=== PATIENT | male | born 1965 | race Caucasian/White ===

== ENCOUNTER → 2017-05-30 08:30 | Outpatient (CLI) | payer BC, SELFPAY ==
[2017-05-30 09:36] LABS: ALB/GLOB Ratio 1.1 RATIO (0.9-2.4); AST(SGOT) 20 U/L (15-37); Alanine Aminotransfer ALT/SGPT 33 U/L (16-61); Albumin, Serum 3.7 g/dL (3.2-5.0); Alkaline Phosphatase 88 U/L (45-117); Anion Gap 8 (5-15); BUN 21 mg/dL (7-18); BUN/Creat Ratio 24.1 RATIO (10-20); Calcium,Total 8.7 mg/dL (8.5-10.1); Chloride 107 mmol/L (98-107); Cholesterol 197 mg/dL (200); Creatinine, Serum 0.87 mg/dL (0.70-1.30); EST Glomerular Filtration Rate 98 mL/min (>60); Est Glom Filt Rate - Afr Amer 119 mL/min (>60); Globulin 3.3 g/dL (2.2-4.2); Glucose 100 mg/dL (74-106); High Density Lipoprotein 45 mg/dL; PSA,Total - Annual Screen 0.58 ng/mL (0.00-4.00); Potassium 4.3 mmol/L (3.5-5.1); Sodium Level 141 mmol/L (136-145); Thyroid Stim Hormone (TSH) 2.35 uIU/mL (0.358-3.74); Triglycerides 125 mg/dL; Very Low Density Lipoprotein 25 mg/dL (5-40)
== END ==
PROVIDERS: Family Provider Family Medicine; PCP Family Medicine; Visit Provider Family Medicine
DX: R73.01 Impaired fasting glucose (principal); E03.9 Hypothyroidism, unspecified; Z80.42 Family history of malignant neoplasm of prostate
CPT/HCPCS: 36415; 80053; 80061; 84153; 84439; 84443; G0103

== ENCOUNTER → 2018-06-05 07:09 | Outpatient (CLI) | payer BC, SELFPAY ==
[2018-06-05 09:15] LABS: Anion Gap 8 (5-15); BUN 16 mg/dL (7-18); BUN/Creat Ratio 18.7 RATIO (10-20); Calcium,Total 8.8 mg/dL (8.5-10.1); Chloride 106 mmol/L (98-107); Cholesterol 237 mg/dL (200); Creatinine, Serum 0.85 mg/dL (0.70-1.30); EST Glomerular Filtration Rate 100 mL/min (>60); Est Glom Filt Rate - Afr Amer 121 mL/min (>60); Glucose 86 mg/dL (74-106); High Density Lipoprotein 52 mg/dL; PSA,Total - Annual Screen 0.84 ng/mL (0.00-4.00); Potassium 4.5 mmol/L (3.5-5.1); Sodium Level 141 mmol/L (136-145); Thyroid Stim Hormone (TSH) 1.96 uIU/mL (0.358-3.74); Triglycerides 156 mg/dL; Very Low Density Lipoprotein 31 mg/dL (5-40)
[2018-06-05 13:07] LABS: Vitamin D,25 Hydroxy 18.2 ng/mL (29.95-100.01)
== END ==
PROVIDERS: Family Provider Family Medicine; PCP Family Medicine; Referring Provider Family Medicine; Visit Provider Family Medicine
DX: Z00.00 Encounter for general adult medical examination without abnormal findings (principal); E55.9 Vitamin D deficiency, unspecified; E03.9 Hypothyroidism, unspecified; Z12.5 Encounter for screening for malignant neoplasm of prostate; I10 Essential (primary) hypertension
CPT/HCPCS: 36415; 80048; 80061; 82306; 84153; 84443; G0103

== ENCOUNTER → 2019-06-10 07:35 | Outpatient (CLI) | payer BC, SELFPAY ==
[2019-06-10 08:07] LABS: Hemoglobin 14.7 g/dL (13.0-16.5); Mean Corp Hgb Conc 32.7 g/dL (32-36); Mean Corpuscular Hgb 30.6 pg (27.0-32.0); Mean Corpuscular Volume 93.8 fL (80-94); Mean Platelet Vol. 9.1 fl (6.2-12.0); Platelet Count 214 K/mm3 (150-450); RBC Distribution Width CV 12.8 % (11.6-14.6); RBC Distribution Width SD 44.2 fl (35.1-43.9); White Blood Count 6.4 K/mm3 (4.4-11.0)
[2019-06-10 08:31] LABS: Microalbumin,Random Urine < 5.0 mg/L (NO RANGE EST.)
[2019-06-10 08:33] LABS: Vitamin D,25 Hydroxy 33.9 ng/mL
[2019-06-10 08:45] LABS: AST(SGOT) 31 U/L (15-37); Alanine Aminotransfer ALT/SGPT 50 U/L (16-61); Albumin, Serum 3.7 g/dL (3.2-5.0); Alkaline Phosphatase 103 U/L (45-117); Anion Gap 3 (5-15); BUN 21 mg/dL (7-18); BUN/Creat Ratio 26.2 RATIO (10-20); Calcium,Total 8.8 mg/dL (8.5-10.1); Chloride 109 mmol/L (98-107); Cholesterol 276 mg/dL (200); EST Glomerular Filtration Rate 107 mL/min (>60); Est Glom Filt Rate - Afr Amer 129 mL/min (>60); Globulin 3.6 g/dL (2.2-4.2); Glucose 115 mg/dL (74-106); High Density Lipoprotein 35 mg/dL; PSA,Total - Annual Screen 0.93 ng/mL (0.00-4.00); Potassium 4.6 mmol/L (3.5-5.1); Protein, Total 7.3 g/dL (6.4-8.2); Sodium Level 139 mmol/L (136-145); Thyroid Stim Hormone (TSH) 2.21 uIU/mL (0.358-3.74); Triglycerides 342 mg/dL; Very Low Density Lipoprotein 68 mg/dL (5-40)
== END ==
PROVIDERS: PCP Family Medicine; Referring Provider Family Medicine; Visit Provider Family Medicine
DX: E55.9 Vitamin D deficiency, unspecified (principal); I10 Essential (primary) hypertension; K21.9 Gastro-esophageal reflux disease without esophagitis; E03.9 Hypothyroidism, unspecified; E29.1 Testicular hypofunction; Z12.5 Encounter for screening for malignant neoplasm of prostate
CPT/HCPCS: 36415; 80053; 80061; 82043; 82306; 84153; 84403; 84443; 85027; G0103

== ENCOUNTER → 2019-10-21 07:40 | Outpatient (CLI) | payer BC, SELFPAY ==
[2019-10-21 08:33] LABS: Cholesterol 197 mg/dL (200); High Density Lipoprotein 36 mg/dL; Triglycerides 315 mg/dL; Very Low Density Lipoprotein 63 mg/dL (5-40)
== END ==
PROVIDERS: PCP Family Medicine; Referring Provider Family Medicine; Visit Provider Family Medicine
DX: E78.5 Hyperlipidemia, unspecified (principal)
CPT/HCPCS: 36415; 80061

== ENCOUNTER → 2020-06-09 07:02 | Outpatient (CLI) | payer BC, SELFPAY ==
[2020-06-09 08:33] LABS: ALB/GLOB Ratio 1.1 RATIO (0.9-2.4); AST(SGOT) 31 U/L (15-37); Alanine Aminotransfer ALT/SGPT 53 U/L (16-61); Albumin, Serum 3.8 g/dL (3.2-5.0); Alkaline Phosphatase 106 U/L (45-117); Anion Gap 7 (5-15); BUN 15 mg/dL (7-18); BUN/Creat Ratio 17.3 RATIO (10-20); Calcium,Total 8.5 mg/dL (8.5-10.1); Chloride 108 mmol/L (98-107); Cholesterol 181 mg/dL (200); Creatinine, Serum 0.87 mg/dL (0.70-1.30); EST Glomerular Filtration Rate 97 mL/min (>60); Est Glom Filt Rate - Afr Amer 118 mL/min (>60); Globulin 3.4 g/dL (2.2-4.2); Glucose 98 mg/dL (74-106); High Density Lipoprotein 42 mg/dL; Potassium 4.4 mmol/L (3.5-5.1); Protein, Total 7.2 g/dL (6.4-8.2); Sodium Level 140 mmol/L (136-145); T4 Free Direct 1.06 ng/dL (0.76-1.46); Triglycerides 191 mg/dL; Very Low Density Lipoprotein 38 mg/dL (5-40)
[2020-06-11 08:34] LABS: Vitamin D,25 Hydroxy 46.5 ng/mL
== END ==
PROVIDERS: PCP Family Medicine; Referring Provider Family Medicine; Visit Provider Family Medicine
DX: E55.9 Vitamin D deficiency, unspecified (principal); E78.5 Hyperlipidemia, unspecified; E03.9 Hypothyroidism, unspecified; Z12.5 Encounter for screening for malignant neoplasm of prostate
CPT/HCPCS: 36415; 80053; 80061; 82306; 84439; 84443

== ENCOUNTER 2020-06-20 23:30 | Observation (INO) | payer BC, SELFPAY ==
[2020-06-20 23:30] VITALS: BP 80/48
[2020-06-20 23:31] VITALS: BP 80/48; PULSE 59; RESP 15; TEMP 35.9; O2SAT 94; BMI 49.6
--- NOTE | 2020-06-20 23:34 | CT_ITS ---
STUDY: CT BRAIN WITHOUT CONTRAST REASON FOR EXAM: Male, 55 years old. fall, syncope RADIATION DOSAGE (If Supplied By Facility): CTDIvol = ( 44.99 ) mGy, DLP = ( 914.22 ) mGycm TECHNIQUE: Transaxial CT imaging of the brain was performed without administration of intravenous contrast material. Individualized dose optimization techniques were used for this CT. COMPARISON: No relevant priors. FINDINGS: Normal soft tissue structures. Normal calvarium. Normal size ventricles and extra-axial spaces for the patient''s age. Normal white matter tracts of the cerebral hemispheres. Normal basal ganglia and thalami. Normal brainstem. Normal cerebellum. There is no intracranial hemorrhage. There are no findings of an acute ischemic infarction. Normal visualized paranasal sinuses. CT/Brain/Head without Contrast IMPRESSION: Normal unenhanced CT scan of the brain. Electronically Signed: Romie Thomas DO at 0:24 EDT Tel , Service support ,
--- NOTE | 2020-06-20 23:34 | EKG12_ITS ---
Test Reason : SYNCOPE Blood Pressure : / mmHG Vent. Rate : 093 BPM Atrial Rate : 093 BPM P-R Int : 158 ms QRS Dur : 124 ms QT Int : 426 ms P-R-T Axes : 072 025 069 degrees QTc Int : 529 ms Sinus rhythm with occasional Premature ventricular complexes Non-specific intra-ventricular conduction delay Borderline ECG Confirmed by WILLIAM ALLISON, MORENA ([id number]), cuff cutter MICHAELA SMITH ([id number]) on 06/21/2020 12:48:59 PM Referred By: MIKA Confirmed By:MORENA THOMAS MD
[2020-06-20] MEDS: 0.9% Normal Saline 1,000 ML 1000 ML IV (23:39)
[2020-06-20 23:40] VITALS: BP 89/74
[2020-06-20 23:40] LABS: Absolute Lymphocyte Count 4.16 X10^3/uL (0.83-4.51); Absolute Neutrophil Count 3.6 X10^3/uL (2.0-7.7); Basophil# 0.04 X10^3/uL; Basophil% 0.5 % (0-1); Eosinophil# 0.13 X10^3/uL; Eosinophils% 1.6 % (0-5); Hematocrit 52.8 % (40-54); Hemoglobin 17.1 g/dL (13.0-16.5); Lymphocyte # 4.16 X10^3/ul (4.0); Lymphocyte % 50.8 % (19-41); Mean Corp Hgb Conc 32.4 g/dL (32-36); Mean Corpuscular Hgb 30.8 pg (27.0-32.0); Mean Corpuscular Volume 95.1 fL (80-94); Mean Platelet Vol. 9.2 fl (6.2-12.0); Monocyte# 0.19 X10^3/uL; Monocyte% 2.3 % (0-10); NRBC Flagged by Analyzer 0 % (0-5); Neutrophil # 3.58 X10^3/uL (2.7-7.7); Neutrophil % 43.7 % (47-70); Platelet Count 285 K/mm3 (150-450); RBC Distribution Width CV 12.6 % (11.6-14.6); RBC Distribution Width SD 44.4 fl (35.1-43.9); Red Blood Count 5.55 M/mm3 (4.6-6.2); White Blood Count 8.2 K/mm3 (4.4-11.0)
--- NOTE | 2020-06-20 23:40 | ED.DCSUM_ITS ---
- ER Visit Summary Date of Service: 06/20/20 Chief Complaint: Syncope History of Present Illness: The patient is a 55 M who presents with syncope. states that he was at home and was going to the bathroom when he had a syncopal episode. She states that his breathing and respirations were decreased so she called 911. Upon their arrival the patient was alert but slightly drowsy. He then had another syncopal episode in front of the EMS personnel. He was on the cardiac rehabilitation program director at that time they did not note any changes. He denies any chest pain, shortness of breath or abdominal pain. He has no history of this in the past. Has been eating and drinking normally recently. He is a smoker. He has no history of coronary disease or MO in the past Physical Examination: Vital signs reviewed. His current blood pressure is 80/40. HEENT exam unremarkable. Heart is tachycardic and regular rhythm without murmurs. Lungs are clear to auscultation. Abdomen is soft and nontender. Extremities reveal no edema. Skin exam normal. Neurologic exam reveals that he is slightly drowsy but answers all questions appropriately. His pupils are equal. His GCS is 14 because he keeps his eyes closed. He follows all commands and moves all 4 extremities. Test Results: EKG was sinus rhythm with a rate of 93. There are PVCs noted. There are other nonspecific ST-T wave changes noted. CAT scan of the head is unremarkable. Hemoglobin 17.1, potassium 3.1, anion gap 16, bicarb 18. BUN is 26 and creatinine is 1.25. Troponin is normal. D-dimer is 0.52, adjusted for age is normal. Lactate is 5.6. ABG shows 7.29/35/109/16 Emergency Department Course and Treatment: The patient was given 2 L of normal saline. Repeat blood pressure is now 100/70. He is still answering questions normally at this time. I am unclear the etiology of the lactic acidosis. The states that she did not see any seizure-like activity nor does he have a history of this. His D-dimer, adjusted for age, is normal. I do not feel he requires a CAT scan of the chest at this time. I performed a bedside ultrasound to review his aorta and this appears of normal caliber. There is no free fluid in the abdomen. At this point I feel he requires admission to the hospital. I reviewed his telemetry in the emergency department. There are continual PVCs and occasional PACs but no other arrhythmias noted. Patient was discussed with hospitalist for admission. Treatment Plan: [] Disposition: Admit Impression: Syncope, lactic acidosis This note was generated with [employer] dictation software. It may contain incorrect words, spelling, and punctuation that were not noted in review of the chart prior to signing ED Disposition - Plan for ED Patient: Referrals: Chuckie Fitzgerald MD [Primary Care Provider] -
[2020-06-20 23:53] VITALS: BP 83/65
[2020-06-20 23:55] LABS: D-Dimer Quantitative (DVT/PE) 0.52 FEU/ug/m (0.27-0.49)
[2020-06-20 23:55] LABS: Base Excess -10 mmol/L (-2 to +2); Bicarbonate 16.9 mmol/L (22-26); Blood Gas Specimen Type ART; O2 Delivery Device Cannula; PO2 109 mmHG (75-100); SITE R Radial; SO2 98 % (95-99); Total Carbon Dioxide 18 mmol/L; pCO2 35.3 mmHg (35-45); pH 7.29 (7.35-7.45)
[2020-06-20 23:59] LABS: ALB/GLOB Ratio 1.2 RATIO (0.9-2.4); AST(SGOT) 29 U/L (15-37); Alanine Aminotransfer ALT/SGPT 47 U/L (16-61); Albumin, Serum 3.8 g/dL (3.2-5.0); Alkaline Phosphatase 105 U/L (45-117); Anion Gap 16 (5-15); BUN 26 mg/dL (7-18); BUN/Creat Ratio 20.8 RATIO (10-20); Calcium,Total 8.9 mg/dL (8.5-10.1); Chloride 106 mmol/L (98-107); Creatinine, Serum 1.25 mg/dL (0.70-1.30); EST Glomerular Filtration Rate 64 mL/min (>60); Est Glom Filt Rate - Afr Amer 77 mL/min (>60); Estimated Creatinine Clearance 74.15 ml/min; Globulin 3.2 g/dL (2.2-4.2); Glucose 134 mg/dL (74-106); Potassium 3.1 mmol/L (3.5-5.1); Sodium Level 140 mmol/L (136-145)
[2020-06-21] VITALS (12 sets, daily range): BP systolic 98–155; BP diastolic 68–95; PULSE 83–99; RESP 12–18; TEMP 36.3–37.3; O2SAT 93–98; BMI 41.8; BMI 41.9
[2020-06-21 00:04] LABS: Lactic Acid 5.6 mmol/L (0.4-1.9)
[2020-06-21] MEDS: 0.9% Normal Saline 1,000 ML 999 ML IV (00:15)
[2020-06-21] MEDS: 0.9% Normal Saline 1,000 ML 150 ML IV (00:29)
--- NOTE | 2020-06-21 01:16 | PCM.HP.STD ---
Problem List (1) Syncope and collapse Status: Acute History of Present Illness Date of Admission: 06/21/20 Chief Complaint: SYNCOPE The patient is a 55 year old M with a significant history of hyperlipidemia; depression/anxiety and hyperlipidemia who presents emergency department with syncope. Reportedly her heard a thud and then found patient lying on the floor. Patient while on the floor was staring and was going in and out of consciousness. Paramedics were called. And while paramedics were bringing the patient to the hospital patient again had a syncopal episode. At the time of the episode his heart rate on the EMS monitor was 105 and stayed at 105 throughout. At the emergency department patient vomited. Also he complained of loose stools while at the emergency department. Blood alcohol level at emergency department was 76. Reportedly patient drinks about 2 shots of bourbon daily and he had same shots before his syncopal episode started. Patient's and denies patient drinking more than 2 shots of bourbon daily. Past Medical History Past Medical History (Chronic Problems): Chronic Problems History of chest pain (Chronic) Allergies No Known Allergies Allergy (Verified 06/20/20 23:34) Home Medications: Ambulatory Orders Medication Instructions Recorded Atorvastatin Calcium 20 mg PO DAILY 06/20/20 Citalopram [Celexa] 40 mg PO DAILY 06/20/20 Levothyroxine [Synthroid] 150 mcg PO DAILY 06/20/20 Surgical History: cholecystectomy Smoking Status: Former smoker - He reports quitting smoking a week and a half ago. Tobacco Use: Cigars - *Family History Maternal History Items: - - His mother from stomach perforation that developed into sepsis. Paternal History Items: Diabetes, Heart Disease Review of Systems Constitutional: Denies: Chills, Fever, Weight Change HEENT: Denies: Head Aches, Sinus Congestion, Sinus Drainage Cardiovascular: Reports: Syncope. Denies: Chest Pain, Palpitations Respiratory: Denies: Cough, Shortness of breath at rest, Sputum production Gastrointestinal: Reports: Nausea, Vomiting. Denies: Abdominal Pain Genitourinary: Denies: Dysuria Musculoskeletal: Denies: Joint Pain, Joint Tenderness Skin: Denies: Rash, Wounds Neurological: Denies: Numbness, Tingling, Focal weakness Psychiatric: Denies: Anxiety, Depression, Homicidal Ideations, Suicidal Ideations Hematologic/ Lymphatic: Denies: Easy Bruising, Easy Bleeding VTE Information - Inpt Only VTE Present on Admission: No VTE Mechan Device Prophylaxis: None VTE Pharm Prophylaxis ordered?: Yes Patient Problems: Active and Suspected Problems Syncope and collapse (Acute) - Physical Exam Vitals/I&O's: Vital Signs Temp Pulse Resp BP Pulse Ox 97.3 F L 88 18 102/68 93 06/21/20 00:58 06/21/20 00:58 06/21/20 00:58 06/21/20 00:58 06/21/20 00:58 Oxygen Flow Rate (L/min) 4 Oxygen Delivery Method Room Air Weight: 165.8 kg Body Mass Index (BMI) 49.6 Intake and Output for Last 24 Hours 06/19/20 06/20/20 06/21/20 23:59 23:59 23:59 Intake Total 1999 Balance 1999 General: Alert, Oriented x3, Cooperative, - - Patient was vomiting at the time of examination. HEENT: Atraumatic, PERRLA, EOMI, Normocephalic Neck: Supple, No JVD, Negative Carotid Bruits Lungs: Clear to auscultation, Normal air movement Cardiovascular: Regular rate, No murmurs Abdomen: Bowel Sounds Present, Soft, Non Tender Extremities: No edema, Capillary Refill Less than 3 Seconds Skin: No rashes, No breakdown Musculoskeletal: No Tenderness to Palpation of Joints or Extremities Neurological: Cranial nerves II-XII grossly intact Psych/Mental Status: Normal Affect, Appropriate Laboratory Results 06/20/20 23:30: Ethyl Alcohol 76.0 06/20/20 23:35: WBC 8.2, RBC 5.55, Hgb 17.1 H, Hct 52.8, MCV 95.1 H, MCH 30.8, MCHC 32.4, RDW Std Deviation 44.4 H, RDW Coeff of Mona 12.6, Plt Count 285, MPV 9.2, Immature Gran % (Auto) 1.100 H, Neut % (Auto) 43.7 L, Lymph % (Auto) 50.8 H, [place] % (Auto) 2.3, Eos % (Auto) 1.6, Baso % (Auto) 0.5, Absolute Neuts (auto) 3.6, Absolute Lymphs (auto) 4.16, Nucleated RBC % 0 06/20/20 23:35: D-Dimer Quant (PE/DVT) 0.52 H* 06/20/20 23:35: Sodium 140, Potassium 3.1 L, Chloride 106, Carbon Dioxide 18.0 L, Anion Gap 16 H, BUN 26 H, Creatinine 1.25, Estim Creat Clear Calc 74.15, Est GFR (MDRD) Af Amer 77, Est GFR (MDRD) Non-Af 64, BUN/Creatinine Ratio 20.8 H, Glucose 134 H, Calcium 8.9, Total Bilirubin 0.30, AST 29, ALT 47, Alkaline Phosphatase 105, Troponin I < 0.015, Total Protein 7.0, Albumin 3.8, Globulin 3.2, Albumin/Globulin Ratio 1.2 06/20/20 23:35: Lactic Acid 5.6 H* 06/20/20 23:52: Specimen Type ART, Sample Site R Radial, pH 7.29 L, Bicarbonate Actual 16.9 L, Total CO2 18, Base Excess -10 L, O2 Saturation 98, ABG pCO2 35.3, ABG pO2 109 H, O2 Delivery Device Cannula, Liter Flow 4.0, Clinical Comments handed to Dr Ward Current Medications Sodium Chloride () 1,000 mls @ 150 mls/hr IV .[id number] [facility] Last Admin: 06/21/20 00:29 Dose: 150 mls/hr Documented by: Assessment/Plan All Active Problems Syncope and collapse (Acute) The patient is a 55 year old M with a significant history of hyperlipidemia; depression/anxiety and hyperlipidemia who presents emergency department with syncope; nausea; vomiting diarrhea and hypokalemia. Syncope EKG sinus rhythm with IVCD and PVCs Etiology unclear. Check orthostatic vitals when patient's systolic blood pressure is more than 90. Echocardiogram ordered. Hypotension/dehydration Systolic blood pressure less than 90 and a BUN of more than 18. Old records reviewed showed normal baseline BUN. Received normal saline bolus and continuous infusion at emergency department. Will change IV fluids to normal saline with potassium because of concomitant hypokalemia. Trend blood pressures. Acute gastroenteritis Supportive treatment with IV fluids. Keep n.p.o. Stool studies including enteric pathogen panel; ova and parasites and stool lactoferrin. Abdomen and pelvis CT ordered at emergency department; follow results. Lactic acidosis Lactic acid of 5.6. Likely secondary to dehydration. IV fluids as above Trend lactic acid Hypokalemia Potassium of 3.1 on presentation. Likely secondary gastroenteritis. Normal saline with potassium ordered and potassium chloride IV ordered. Check magnesium. Trend CMP. Elevated D-dimer D-dimer of 0.58 but age appropriate. No further intervention at this time. Tobacco abuse Reportedly quit smoking 6 about 1-1/2 weeks ago. Counseled. DVT prophylaxis Subcutaneous Lovenox ordered. OBSV E&M: 42725 Initial observation care L3
--- NOTE | 2020-06-21 01:23 | ECHOD_ITS ---
Version 2 Reason For Study: SYNCOPE/NEAR SYNCOPE Procedure This was a 2D Doppler, Color Flow transthoracic echocardiogram. Exam performed portable in ICU/CCU. Left Ventricle Normal LV size. Mild concentric left ventricular hypertrophy. Left ventricular systolic function is normal. The estimated ejection fraction is 60 %. Stage 1 diastolic dysfunction. No regional wall motion abnormalities noted. Right Ventricle Normal RV size. Normal systolic function. Atria Normal left atrium. Normal right atrium. Mitral Valve Normal mitral valve. Tricuspid Valve Normal tricuspid valve. Aortic Valve Trisinus/trileaflet aortic valve. Mild focal aortic valve calcification. Pulmonic Valve The pulmonic valve is not well visualized. Great Vessels Mild to moderately dilated ascending aorta. Normal aortic root. The pulmonary artery is normal size. Normal inferior vena cava. Pericardium/Pleural No pericardial effusion. MMode/2D Measurements & Calculations LVIDd: 6.4 cm IVSd: 1.3 cm Ao root diam: 3.2 cm LVIDs: 4.5 cm LVPWd: 1.2 cm RVDd: 3.4 cm FS: 29.2 % LAV(MOD-bp): 67.5 ml EDV(MOD-sp4): 233.0 ml EDV(MOD-sp2): 116.0 ml LAV(MOD-bp) Indexed: 25.2 ml/m2 ESV(MOD-sp4): 84.3 ml EF(MOD-sp2): 57.7 % LAV(MOD-sp2): 65.4 ml EF(MOD-sp4): 63.8 % LAV(MOD-sp4): 65.6 ml SV(MOD-sp4): 148.7 ml SV(MOD-sp2): 66.9 ml LA A4 area: 21.7 cm2 LA dimension(2D): 5.0 cm RA A4 area: 14.2 cm2 Time Measurements MV dec time: 0.22 sec Doppler Measurements & Calculations MV E max luiz: 64.2 cm/sec Lat Peak E' Luiz: 9.4 cm/sec Med Peak E' Luiz: 7.1 cm/sec MV A max luiz: 72.9 cm/sec E/E' lat: 6.8 E/E' med: 9.0 MV E/A: 0.88 Ao V2 max: 157.9 cm/sec LV V1 max: 107.1 cm/sec PA V2 max: 120.3 cm/sec Ao max P.0 mmHg LV V1 max P.6 mmHg Ao V2 mean: 108.4 cm/sec LV V1 mean P.9 mmHg Ao mean P.4 mmHg LV V1 mean: 82.4 cm/sec Ao V2 VTI: 25.2 cm LV V1 VTI: 19.2 cm Interpretation Summary Normal LV size. Left ventricular systolic function is normal. The estimated ejection fraction is 60 %. Stage 1 diastolic dysfunction. Mild concentric left ventricular hypertrophy. Mild to moderately dilated ascending aorta. The study was technically difficult. Ordering Physician: Nima Gonsalves Referring Physician: Alejo Fitzgerald Performed By: Molly Henning RDCS, RVT
--- NOTE | 2020-06-21 01:27 | CT_ITS ---
STUDY: CT ABDOMEN AND PELVIS WITH CONTRAST REASON FOR EXAM: Male, 55 years old. abdominal pain RADIATION DOSAGE (If Supplied By Facility): CTDIvol = ( 22.07 ) mGy, DLP = ( 1456.80 ) mGycm TECHNIQUE: Transaxial images were obtained from the dome of the diaphragm to the symphysis pubis without oral contrast. IV 100mL [id number]-300 was administered. Sagittal and coronal images were reconstructed. Individualized dose optimization techniques were used for this CT. COMPARISON: None. FINDINGS: The visualized lung bases are unremarkable. The visualized portions of the heart are within normal limits. Normal liver. There is non-visualization of the gallbladder, which may be secondary to either contraction or a prior cholecystectomy. Normal spleen. Normal pancreas. Normal bilateral adrenal glands. Normal right kidney. Normal left kidney. Normal visualized stomach. Normal small intestine. Normal colon. There is non-visualization of the appendix. Normal abdominal aorta. Normal inferior vena cava. Normal retroperitoneum. Normal urinary bladder. Normal visualized prostate gland. Normal abdominal wall. Normal osseous structures. CT/Abdomen/Pelvis W IV Cont ONLY IMPRESSION: Normal enhanced CT of the abdomen and pelvis. Electronically Signed: Romie Thomas DO at 3:10 EDT Tel , Service support ,
[2020-06-21] MEDS: Ondansetron 4 MG/2 ML Vial IV (01:28)
[2020-06-21] MEDS: Potassium Chloride 10mEq/100mL 10 MEQ/100 ML IV.SOLN. 100 MEQ IV BOLUS ×4 (02:08→05:34)
[2020-06-21] MEDS: Potassium Chloride 40 MEQ in 0.9% Normal Saline 1,000 ML 125 MEQ IV (02:20)
[2020-06-21 03:39] LABS: Reflex Lactate? Y
[2020-06-21 04:35] LABS: Lactic Acid 1.2 mmol/L (0.4-1.9)
[2020-06-21 05:46] LABS: Absolute Lymphocyte Count 0.68 X10^3/uL (0.83-4.51); Basophil# 0.04 X10^3/uL; Basophil% 0.3 % (0-1); Eosinophil# 0.02 X10^3/uL; Eosinophils% 0.1 % (0-5); Hematocrit 44.9 % (40-54); Hemoglobin 14.8 g/dL (13.0-16.5); Lymphocyte # 0.68 X10^3/ul (4.0); Lymphocyte % 4.6 % (19-41); Mean Corpuscular Hgb 31.2 pg (27.0-32.0); Mean Corpuscular Volume 94.5 fL (80-94); Mean Platelet Vol. 9.4 fl (6.2-12.0); Monocyte# 0.95 X10^3/uL; Monocyte% 6.5 % (0-10); NRBC Flagged by Analyzer 0 % (0-5); Neutrophil # 12.95 X10^3/uL (2.7-7.7); Platelet Count 237 K/mm3 (150-450); RBC Distribution Width CV 12.7 % (11.6-14.6); Red Blood Count 4.75 M/mm3 (4.6-6.2); White Blood Count 14.7 K/mm3 (4.4-11.0)
[2020-06-21 06:11] LABS: Anion Gap 4 (5-15); BUN 24 mg/dL (7-18); BUN/Creat Ratio 28.6 RATIO (10-20); Calcium,Total 8.4 mg/dL (8.5-10.1); Chloride 108 mmol/L (98-107); Creatinine, Serum 0.84 mg/dL (0.70-1.30); EST Glomerular Filtration Rate 101 mL/min (>60); Est Glom Filt Rate - Afr Amer 122 mL/min (>60); Estimated Creatinine Clearance 123.43 ml/min; Glucose 125 mg/dL (74-106); Magnesium 1.9 mg/dL (1.6-2.6); Potassium 4.8 mmol/L (3.5-5.1); Sodium Level 138 mmol/L (136-145); Thyroid Stim Hormone (TSH) 1.55 uIU/mL (0.358-3.74)
--- NOTE | 2020-06-21 08:47 | RAD_ITS ---
STUDY: X-RAY CHEST REASON FOR EXAM: Male, 55 years old. Leukocytosis, lactic acidosis TECHNIQUE: Single AP portable view of the chest. COMPARISON: Comparison is made with prior study dated 11/06/2011. FINDINGS: EKG electrodes are seen. The lungs are clear and expanded. There is no demonstrated pleural abnormality. There is mild cardiac enlargement. Normal mediastinum and jose. Normal visualized pulmonary arteries. Normal visualized aortic arch and descending thoracic aorta. Normal visualized thoracic spine. Normal visualized ribs, clavicles, and shoulders. There is no demonstrated abnormality of the visualized soft tissue structures of the upper abdomen. RAD/Chest 1 View (Portable) IMPRESSION: Mild cardiomegaly. The lungs are clear. Electronically Signed: Alexis Nickerson MD at 14:49 EDT , Service support ,
--- NOTE | 2020-06-21 09:22 | PCM.PN.BLA ---
Progress Note This is a 55 years old male patient admitted because of reported syncopal episode. Patient mentioned that he took 2 shots of [place] around 1 hour before he went to bed. He went to bed around 10 PM last night. He was not aware of what happened between 10 PM and 1:30 AM when he found himself in the ED. He does not remember that he had any chest pain or shortness of breath. He did mention that he was dizzy. Today, he is feeling fine, no complaints. No chest pain or shortness of breath. CT scan brain showed no acute findings. CT scan abdomen and pelvis showed no acute pathology. On admission, his potassium was 3.1 which was replaced and corrected. Lactic acid was 5.6, came down to 1.2 with IV fluids. He has been afebrile. No evidence of infection. EKG revealed normal sinus rhythm with PVCs, no acute segment changes. Troponin was negative. LFT was unremarkable. TSH and magnesium were normal. Today, CBC revealed leukocytosis. Plan: Chest x-ray, urinalysis, transfer to PCU, repeat CBC and BMP tomorrow morning. STROKE Vital Signs/Narrative: Vital Signs Temp Pulse Resp BP Pulse Ox 06/21/20 08:00 99.1 F 98 16 148/88 H 98 06/21/20 07:47 90
[2020-06-21 09:46] LABS: Bacteria 0 SEEN /hpf (None Seen); Mucous, Urine 0 SEEN /hpf (<or=2+); Red Blood Cells-Urine 0 SEEN /hpf (0-5); Squamous Epithelial Cells - UA 0 SEEN /hpf (0-5)
[2020-06-21 09:49] LABS: Color, Urine Yellow (Yellow); Glucose, Dipstick Normal (Normal); Ketone-Dipstick 50 mg/dl (Negative); Leukocyte Esterase-Dipstick 25 /ul (Negative); Nitrite-Dipstick Negative (Negative); Occult Blood-Urine 10 /ul (Negative); Protein-Dipstick Negative (Negative); Specific Gravity, Urine 1.015 (1.002-1.030); Urine Bilirubin Dipstick Negative (Negative); Urine Clarity Clear (Clear); Urine Urobilinogen Normal (Normal)
[2020-06-21 09:56] LABS: White Blood Cells 0-5 SEEN /hpf (0-5)
[2020-06-21] MEDS: 0.9% Saline Lock 10 ML Syringe IV ×2 (10:11→19:58)
[2020-06-21] MEDS: Enoxaparin 40 MG/0.4 ML Syringe SC (10:11)
[2020-06-21 11:16] LABS: Hemoglobin A1c 5.2 % (3.8-5.6)
[2020-06-21] MEDS: Pantoprazole Sodium 40 MG Tablet PO (12:20)
[2020-06-21] MEDS: Citalopram 40 MG TABLET PO (12:20)
[2020-06-21] MEDS: Atorvastatin Calcium 20 MG Tablet PO (12:21)
[2020-06-21] MEDS: Levothyroxine 125 MCG Tablet PO (12:21)
[2020-06-21] MEDS: Acetaminophen 325 MG Tablet 650 MG PO ×2 (13:46→19:58)
[2020-06-21] MEDS: MELATONIN 3 MG TABLET PO (21:54)
[2020-06-21] MEDS: Ibuprofen 400 MG Tablet PO (21:54)
[2020-06-22 02:59] VITALS: PULSE 73
[2020-06-22 04:57] LABS: Absolute Lymphocyte Count 1.88 X10^3/uL (0.83-4.51); Absolute Neutrophil Count 4.6 X10^3/uL (2.0-7.7); Basophil# 0.03 X10^3/uL; Basophil% 0.4 % (0-1); Eosinophil# 0.35 X10^3/uL; Eosinophils% 4.5 % (0-5); Hematocrit 40.1 % (40-54); Lymphocyte # 1.88 X10^3/ul (4.0); Lymphocyte % 24.2 % (19-41); Mean Corp Hgb Conc 32.4 g/dL (32-36); Mean Corpuscular Hgb 30.7 pg (27.0-32.0); Mean Corpuscular Volume 94.8 fL (80-94); Mean Platelet Vol. 9.5 fl (6.2-12.0); Monocyte# 0.83 X10^3/uL; Monocyte% 10.7 % (0-10); NRBC Flagged by Analyzer 0 % (0-5); Neutrophil # 4.64 X10^3/uL (2.7-7.7); Neutrophil % 59.8 % (47-70); Platelet Count 196 K/mm3 (150-450); RBC Distribution Width SD 44.8 fl (35.1-43.9); Red Blood Count 4.23 M/mm3 (4.6-6.2); White Blood Count 7.8 K/mm3 (4.4-11.0)
[2020-06-22 05:11] LABS: Anion Gap 5 (5-15); BUN 13 mg/dL (7-18); BUN/Creat Ratio 19.7 RATIO (10-20); Calcium,Total 8.4 mg/dL (8.5-10.1); Chloride 107 mmol/L (98-107); Creatinine, Serum 0.66 mg/dL (0.70-1.30); EST Glomerular Filtration Rate 134 mL/min (>60); Est Glom Filt Rate - Afr Amer 162 mL/min (>60); Estimated Creatinine Clearance 157.09 ml/min; Glucose 90 mg/dL (74-106); Potassium 3.5 mmol/L (3.5-5.1); Sodium Level 141 mmol/L (136-145)
[2020-06-22 06:06] VITALS: BP 134/72; PULSE 74; RESP 18; TEMP 36.7; O2SAT 95
[2020-06-22] MEDS: Levothyroxine 125 MCG Tablet PO (06:12)
[2020-06-22] MEDS: Ibuprofen 400 MG Tablet PO (06:15)
[2020-06-22 07:00] VITALS: PULSE 65
[2020-06-22 07:32] VITALS: O2SAT 96
--- NOTE | 2020-06-22 08:20 | DCINST_ITS ---
- Discharge Diagnoses Current Active Problems: Current Active and Chronic Problems Syncope and collapse (Acute) You will use the following diet at home:: Regular Your food should be the consistency of: Regular Discharge Activity: Return to Normal Activity Return to work on:: 06/25/20 Weight Bearing Status: Full weight bearing Call your doctor if you observe: Fever of 101 or Higher, Shortness of breath, Dizziness, Fainting spells, Chest pain, Increased palpitations (irregular heartbeat), Uncontrolled pain Allergies/Adverse Reactions: Allergies No Known Allergies Allergy (Verified 06/20/20 23:34) Medications to take at Discharge Atorvastatin Calcium 20 mg PO DAILY 06/20/20 Citalopram [Celexa] 40 mg PO DAILY 06/20/20 Levothyroxine [Synthroid] 150 mcg PO DAILY 06/20/20 Esomeprazole Mag Trihydrate [Nexium] 40 mg PO DAILY 06/21/20 Primary Care Physician: Chuckie Fitzgerald MD [Primary Care Provider] - Please follow up with your Primary Care Physician in: 1-2 weeks. Test Results: Test results from this visit will be discussed in further detail at your follow- up appointment, if applicable.
--- NOTE | 2020-06-22 09:28 | PHA.DC.MR ---
Pharmacy Service has performed discharge medication reconciliation for this patient. The patient's discharge medication list was reviewed for discrepancies and discrepancies were resolved. Home Medications Atorvastatin Calcium 20 mg PO DAILY 06/20/20 Citalopram [Celexa] 40 mg PO DAILY 06/20/20 Levothyroxine [Synthroid] 150 mcg PO DAILY 06/20/20 Esomeprazole Mag Trihydrate [Nexium] 40 mg PO DAILY 06/21/20
[2020-06-22] MEDS: Citalopram 40 MG TABLET PO (09:34)
[2020-06-22] MEDS: Atorvastatin Calcium 20 MG Tablet PO (09:34)
[2020-06-22] MEDS: Pantoprazole Sodium 40 MG Tablet PO (09:34)
--- NOTE | 2020-06-22 12:22 | DS.PCM_ITS ---
Discharge Date and Diagnosis - Problem List Patient Problems: Active and Suspected Problems Syncope and collapse (Acute) Date of Admission: 06/21/20 Date of Discharge: 06/22/20 - Primary Discharge Diagnosis Acute Problems: Active Problems #1 syncope and collapse, unclear etiology (Acute). #2 lactic acidosis, unclear etiology, no evidence of infection. #3 hypokalemia, replaced and corrected. - Secondary Discharge Diagnosis Chronic Problems: Chronic Problems History of chest pain (Chronic) Hospital Course and Treatment Imaging Results: Clinical Impression(s) from Imaging Studies Brain CT 06/20/20 23:34 IMPRESSION: Normal unenhanced CT scan of the brain. Electronically Signed: Romie Thomas DO at 0:24 EDT Tel , Service support , Abdomen/Pelvis CT 06/21/20 01:27 IMPRESSION: Normal enhanced CT of the abdomen and pelvis. Electronically Signed: Romie Thomas DO at 3:10 EDT Tel , Service support , Chest X-Ray 06/21/20 08:47 IMPRESSION: Mild cardiomegaly. The lungs are clear. Electronically Signed: Alexis Nickerson MD at 14:49 EDT , Service support , Procedures: 2-D Echocardiogram, EKG Summary of Care Provided: Patient seen and examined on the day of discharge and appeared to be stable to be discharged home. He had no complaints apart from neck discomfort because of the fall and his vital signs were stable. The patient is a 55 year old M presented to the emergency room because of reported syncopal episode. This syncope was witnessed by patient's . Apparently, patient took 2 shots of [place], went to the bathroom and he had syncopal episode. Patient reported mild dizziness before this happened but no other symptoms such as chest pain or palpitation. Patient mentioned that he was not aware of what happened between 10 PM on the night when he was admitted to 1:30 AM same night. His routine initial blood work revealed potassium of 3.1, otherwise unremarkable. His lactic acid was elevated at 5.6. There was no evidence of infection. Chest x-ray showed no acute findings. Urinalysis showed no evidence of UTI. LFT was unremarkable. TSH was normal. EKG revealed normal sinus rhythm with PVCs, no acute ischemic changes. Troponin was negative x3. Patient had CT scan brain that showed no acute infarct or hemorrhage. He had CT scan abdomen and pelvis with IV contrast because he complained of abdominal pain and that showed no evidence of acute intra-abdominal pathology. Patient's vital signs and blood pressure remained stable throughout her hospital stay. Telemetry did not show evidence of abnormal heart rhythm or cardiac arrhythmias. 2D echocardiogram done and showed normal LV size and function, ejection fraction 60%, stage I diastolic function. Upon admission, blood alcohol level was 76. I am not sure if his symptoms may be just due to alcohol impairment. No evidence of other acute pathology identified. Patient discharged home in a stable medical condition, discharged on his same previous home medications without any changes, patient may need 30-day event monitor if the syncope happened again, recommended follow-up with PCP in 1 to 2 weeks. Patient Problems: Active and Suspected Problems Syncope and collapse (Acute) - Physical Exam Vitals/I&O's: Vital Signs Temp Pulse Resp BP Pulse Ox 98.1 F 65 18 134/72 H 96 06/22/20 06:06 06/22/20 07:00 06/22/20 06:06 06/22/20 06:06 06/22/20 07:32 Oxygen Flow Rate (L/min) 2 Oxygen Delivery Method Room Air Weight: 344 lb 1 oz Body Mass Index (BMI) 41.8 Intake and Output for Last 24 Hours 06/20/20 06/21/20 06/22/20 23:59 23:59 23:59 Intake Total 5365.83 / 5365.83 1100 / 1100 Output Total 1575 / 1575 Balance 3790.83 / 3790.83 1100 / 1100 General: Alert, Oriented x3, Cooperative, No apparent distress HEENT: Atraumatic, PERRLA, EOMI, Normocephalic Oral: Moist Mucosa, No Gingival or Mucosal Lesions/ Ulcerations Neck: Supple, No JVD, Negative Carotid Bruits, Trachea Midline, Thyroid Normal Size and Texture Lungs: Clear to auscultation, Normal air movement, No rhonchi, No wheeze, No rales Cardiovascular: Regular rate, Regular Rhythm, Normal S1, Normal S2, PMI Normal Abdomen: Bowel Sounds Present, Soft, Non Tender, Non-Distended, No Hepato- splenomegaly, Obese Extremities: No clubbing, No cyanosis, No edema Skin: No rashes, No breakdown Lymphatic: No Cervical, Supraclavicular, or Inguinal Adenopathy Neurological: Cranial nerves II-XII grossly intact, Neuro grossly intact Psych/Mental Status: Normal Affect, Appropriate Laboratory Results 06/22/20 04:20: WBC 7.8, RBC 4.23 L, Hgb 13.0, Hct 40.1, MCV 94.8 H, MCH 30.7, MCHC 32.4, RDW Std Deviation 44.8 H, RDW Coeff of Mona 13.0, Plt Count 196, MPV 9.5, Immature Gran % (Auto) 0.400, Neut % (Auto) 59.8, Lymph % (Auto) 24.2, [place] % (Auto) 10.7 H, Eos % (Auto) 4.5, Baso % (Auto) 0.4, Absolute Neuts (auto) 4.6, Absolute Lymphs (auto) 1.88, Nucleated RBC % 0 06/22/20 04:20: Sodium 141, Potassium 3.5, Chloride 107, Carbon Dioxide 29.0, Anion Gap 5, BUN 13, Creatinine 0.66 L, Estim Creat Clear Calc 157.09, Est GFR (MDRD) Af Amer 162, Est GFR (MDRD) Non-Af 134, BUN/Creatinine Ratio 19.7, Glucose 90, Calcium 8.4 L Discharge Activity: Return to Normal Activity Return to work on:: 06/25/20 Weight Bearing Status: Full weight bearing Call your doctor if you observe: Fever of 101 or Higher, Shortness of breath, Dizziness, Fainting spells, Chest pain, Increased palpitations (irregular heartbeat), Uncontrolled pain Home Medications: Medications to take at Discharge Atorvastatin Calcium 20 mg PO DAILY 06/20/20 Citalopram [Celexa] 40 mg PO DAILY 06/20/20 Levothyroxine [Synthroid] 150 mcg PO DAILY 06/20/20 Esomeprazole Mag Trihydrate [Nexium] 40 mg PO DAILY 06/21/20 Primary Care Physician: Chuckie Fitzgerald MD [Primary Care Provider] - Please follow up with your Primary Care Physician in: 1-2 weeks. Please Follow Up With: Chuckie Fitzgerald MD Disposition: Home Minutes spent on discharge:: 29 Patient Condition:: Stable Medical Necessity - Tobacco Use Smoking Status: Former smoker Tobacco Use: Cigars Meaningful Use Info Meaningful Use Diagnoses (Choose all that apply): None applicable OBSV E&M: 22983 Observation care discharge
== END 2020-06-22 08:03 | disposition home or self-care (01) ==
LOC: ED 06-21 00:08 → ICU 06-21 01:27 → PCU 06-21 17:56
PROVIDERS: Admitting Provider Hospitalist; Emergency Provider Emergency Medicine; PCP Family Medicine; Visit Provider Hospitalist
DX: R55 Syncope and collapse (principal); E87.2 Acidosis; E78.5 Hyperlipidemia, unspecified; F32.9 Major depressive disorder, single episode, unspecified; F41.9 Anxiety disorder, unspecified; Z79.899 Other long term (current) drug therapy; Z87.891 Personal history of nicotine dependence; E86.0 Dehydration; I95.9 Hypotension, unspecified; K52.9 Noninfective gastroenteritis and colitis, unspecified; E87.6 Hypokalemia
CPT/HCPCS: 36600; 70450; 71045; 74177; 80048; 80053; 81001; 82077; 82803; 83036; 83605; 83735; 84443; 84484; 85025; 85379; 93005; 93306; 96361; 96365; 96366; 96372; 96375; 99218; 99285; 99406; J7030; J7050; Q9957; Q9967; A4216; G0378; J2405

== ENCOUNTER → 2020-08-06 06:04 | Outpatient (CLI) | payer BC, SELFPAY ==
[2020-07-13 14:21] VITALS: BMI 41.5
--- NOTE | 2020-08-06 18:03 | STRESSREP ---
Stress Test Report Exercise myocardial perfusion stress test. 55-year-old male with a history of syncope. Stress protocol: Resting EKG demonstrates normal sinus rhythm with a rate of 61 bpm incomplete right bundle branch block is noted. The resting blood pressure is 142/94 mmHg. The patient exercised according to regular Lexa protocol for a total duration of 9 minutes and 15 seconds. The maximum heart rate attained was 146 bpm which was 87% of maximum predicted heart rate the maximum workload was 10.4 metabolic equivalents. Patient completed 15 seconds into stage IV of the Lexa protocol. The test was terminated due to the target heart rate being achieved. At rest and during peak exercise upsloping ST changes were noted with did not meet the criteria for ischemia. The peak blood pressure was 184/80 mmHg. Myocardial perfusion protocol. 14.9 mCi of technetium 99m sestamibi was injected at rest. The patient exercised according to regular Lexa protocol for 9 minutes and 15 seconds. At peak exercise 44.8 mCi of technetium 99m sestamibi was injected stress images were obtained stress and rest images were reconstructed and compared in the short axis vertical long and horizontal long axis. Gated images were also obtained for Perfusion SPECT analysis: Review of the stress images demonstrate normal uptake of tracer noted in all areas of the myocardium, except for small portion of the apex with a mild defect. The resting images similarly demonstrate normal uptake of tracer noted in all areas of the myocardium except for the small portion in the apex. The rest of the garcia appear to be well perfused no obvious areas of reversibility are noted suggest infarct. Gated SPECT analysis: The gated ejection fraction is 49%. Conclusion: Exercise myocardial perfusion stress test with no evidence of ischemia. Previous small apical infarct cannot be excluded. Excellent functional capacity. Mild cardiomyopathy present..
== END ==
PROVIDERS: PCP Family Medicine; Referring Provider Internal Medicine Cardiovascular Disease; Visit Provider Internal Medicine Cardiovascular Disease
DX: R55 Syncope and collapse (principal)
CPT/HCPCS: 78452; 93017; A9500; A4216

== ENCOUNTER 2021-06-08 08:02 | Outpatient (CLI) | payer BC, SELFPAY ==
[2021-06-08 09:23] LABS: ALB/GLOB Ratio 1.1 RATIO (0.9-2.4); AST(SGOT) 18 U/L (15-37); Alanine Aminotransfer ALT/SGPT 33 U/L (16-61); Albumin, Serum 3.8 g/dL (3.2-5.0); Alkaline Phosphatase 92 U/L (45-117); Anion Gap 1 (5-15); BUN 24 mg/dL (7-18); BUN/Creat Ratio 30.2 RATIO (10-20); Calcium,Total 9.2 mg/dL (8.5-10.1); Chloride 109 mmol/L (98-107); Cholesterol 175 mg/dL (200); Creatinine, Serum 0.79 mg/dL (0.70-1.30); EST Glomerular Filtration Rate 108 mL/min (>60); Est Glom Filt Rate - Afr Amer 130 mL/min (>60); Globulin 3.4 g/dL (2.2-4.2); Glucose 106 mg/dL (74-106); High Density Lipoprotein 46 mg/dL; PSA,Total - Annual Screen 1.56 ng/mL (0.00-4.00); Potassium 4.6 mmol/L (3.5-5.1); Protein, Total 7.2 g/dL (6.4-8.2); Sodium Level 139 mmol/L (136-145); Thyroid Stim Hormone (TSH) 2.39 uIU/mL (0.358-3.74); Triglycerides 76 mg/dL; Very Low Density Lipoprotein 15 mg/dL (5-40)
== END 2021-06-08 23:59 | disposition home or self-care (01) ==
PROVIDERS: PCP Family Medicine; Referring Provider Family Medicine; Visit Provider Family Medicine
DX: E03.9 Hypothyroidism, unspecified (principal); E78.5 Hyperlipidemia, unspecified; Z12.5 Encounter for screening for malignant neoplasm of prostate
CPT/HCPCS: 36415; 80053; 80061; 84153; 84443; G0103

== ENCOUNTER → 2022-06-21 | Outpatient (CLI) | payer BC, SELFPAY ==
[2022-06-21 08:11] LABS: Color, Urine Yellow (Yellow); Glucose, Dipstick Normal (Normal); Ketone-Dipstick Negative (Negative); Leukocyte Esterase-Dipstick Negative /ul (Negative); Nitrite-Dipstick Negative (Negative); Occult Blood-Urine 25 /ul (Negative); Protein-Dipstick Negative (Negative); Urine Bilirubin Dipstick Negative (Negative); Urine Clarity Clear (Clear); Urine Urobilinogen Normal (Normal)
[2022-06-21 08:13] LABS: ALB/GLOB Ratio 1.2 RATIO (0.9-2.4); AST(SGOT) 18 U/L (15-37); Alanine Aminotransfer ALT/SGPT 39 U/L (16-61); Alkaline Phosphatase 87 U/L (45-117); Anion Gap 7 (5-15); BUN 23 mg/dL (7-18); BUN/Creat Ratio 28.2 RATIO (10-20); Calcium,Total 8.9 mg/dL (8.5-10.1); Chloride 106 mmol/L (98-107); Cholesterol 161 mg/dL (200); Creatinine, Serum 0.82 mg/dL (0.70-1.30); EST Glomerular Filtration Rate 104 mL/min (>60); Est Glom Filt Rate - Afr Amer 126 mL/min (>60); Globulin 3.2 g/dL (2.2-4.2); Glucose 105 mg/dL (74-106); High Density Lipoprotein 52 mg/dL; Microalbumin,Random Urine 10.9 mg/L (NO RANGE EST.); PSA,Total - Annual Screen 1.98 ng/mL (0.00-4.00); Potassium 4.7 mmol/L (3.5-5.1); Protein, Total 7.2 g/dL (6.4-8.2); Sodium Level 138 mmol/L (136-145); T4 Free Direct 0.95 ng/dL (0.76-1.46); Thyroid Stim Hormone (TSH) 4.14 uIU/mL (0.358-3.74); Triglycerides 70 mg/dL; Very Low Density Lipoprotein 14 mg/dL (5-40)
[2022-06-23 08:26] LABS: Vitamin D,25 Hydroxy 26.2 ng/mL
== END | disposition home or self-care (01) ==
PROVIDERS: PCP Family Medicine; Visit Provider Family Medicine
DX: Z00.00 Encounter for general adult medical examination without abnormal findings (principal); I10 Essential (primary) hypertension; Z12.5 Encounter for screening for malignant neoplasm of prostate; E29.1 Testicular hypofunction; E03.9 Hypothyroidism, unspecified; E55.9 Vitamin D deficiency, unspecified
CPT/HCPCS: 36415; 80053; 80061; 81002; 82043; 82306; 84153; 84403; 84439; 84443; G0103

== ENCOUNTER → 2022-10-20 | Outpatient (CLI) | payer BC, SELFPAY ==
--- NOTE | 2022-10-20 16:01 | RAD_ITS ---
INDICATION: pain EXAMINATION/TECHNIQUE: X-RAY - RIGHT XR Shoulder Min 2 Views 4 VIEWS COMPARISON: Chest radiograph June 21, 2020 FINDINGS: SOFT TISSUES: No soft tissue swelling or gas. No radiopaque foreign body. BONES/JOINTS: No acute fracture. No Hill-Sachs or Bankart lesion... Normal glenohumeral and acromioclavicular alignment. No sclerotic or destructive changes observed. Mild glenohumeral and acromioclavicular osteophyte formation. RAD/Shoulder min 2 Views IMPRESSION: Mild glenohumeral and acromioclavicular osteoarthritis.. Electronically Signed: Waqar Balderas MD at 6:33 EDT ,
== END | disposition home or self-care (01) ==
PROVIDERS: PCP Family Medicine; Referring Provider Family Medicine; Visit Provider Family Medicine
DX: M25.519 Pain in unspecified shoulder (principal)
CPT/HCPCS: 73030

== ENCOUNTER → 2022-12-10 | Outpatient (CLI) | payer BC, SELFPAY ==
[2022-12-10 17:54] LABS: Hematocrit 43.7 % (40-54); Hemoglobin 14.6 g/dL (13.0-16.5); Mean Corp Hgb Conc 33.4 g/dL (32-36); Mean Corpuscular Hgb 31.2 pg (27.0-32.0); Mean Corpuscular Volume 93.4 fL (80-94); Mean Platelet Vol. 9.3 fl (6.2-12.0); Platelet Count 238 K/mm3 (150-450); RBC Distribution Width CV 12.3 % (11.6-14.6); RBC Distribution Width SD 42.3 fl (35.1-43.9); Red Blood Count 4.68 M/mm3 (4.6-6.2); White Blood Count 6.4 K/mm3 (4.4-11.0)
[2022-12-10 18:21] LABS: ALB/GLOB Ratio 1.2 RATIO (0.9-2.4); AST(SGOT) 21 U/L (15-37); Alanine Aminotransfer ALT/SGPT 43 U/L (16-61); Albumin, Serum 4.1 g/dL (3.2-5.0); Alkaline Phosphatase 98 U/L (45-117); Anion Gap 6 (5-15); BUN 30 mg/dL (7-18); BUN/Creat Ratio 31.8 RATIO (10-20); Calcium,Total 8.8 mg/dL (8.5-10.1); Chloride 109 mmol/L (98-107); Creatinine, Serum 0.94 mg/dL (0.70-1.30); EST Glomerular Filtration Rate 88 mL/min (>60); Est Glom Filt Rate - Afr Amer 106 mL/min (>60); Globulin 3.4 g/dL (2.2-4.2); Glucose 106 mg/dL (74-106); Potassium 4.3 mmol/L (3.5-5.1); Protein, Total 7.5 g/dL (6.4-8.2); Sodium Level 138 mmol/L (136-145); T4 Free Direct 0.95 ng/dL (0.76-1.46); Thyroid Stim Hormone (TSH) 4.51 uIU/mL (0.358-3.74)
== END | disposition home or self-care (01) ==
LOC: MFPLAB 17:00
PROVIDERS: PCP Family Medicine; Visit Provider Family Medicine
DX: R79.89 Other specified abnormal findings of blood chemistry (principal); E03.9 Hypothyroidism, unspecified
CPT/HCPCS: 36415; 80053; 84403; 84439; 84443; 85027

== ENCOUNTER → 2023-02-10 | Outpatient (CLI) | payer BC, SELFPAY ==
--- NOTE | 2023-02-10 10:27 | MRI_ITS ---
STUDY: MRI RIGHT SHOULDER REASON FOR EXAM: Male, 57 years old. Right shoulder pain, rotator cuff disorder, limited range of motion. TECHNIQUE: Standardized fat and water weighted pulse sequences were obtained in all 3 orthogonal planes. COMPARISON: Right shoulder radiographs dated 10/20/2022. FINDINGS: There are full-thickness tears of the distal supraspinatus and infraspinatus tendons, with 3.4 cm medial tendon retraction. There is severe subscapularis tendinosis. Normal teres minor tendon. There is mild atrophy and fatty infiltration of the supraspinatus and infraspinatus muscles. Normal subscapularis muscle. Normal teres minor muscle. There is a small glenohumeral joint effusion with fluid communicating into the subacromial-subdeltoid bursa. There is superior migration of the humeral head with respect to the glenoid with complete loss of the acromiohumeral space. Normal biceps labral complex. There is long biceps tendinosis within the proximal bicipital groove. Normal labrum. Normal capsulo-ligamentous complex. Normal rotator interval. There is hypertrophic acromioclavicular arthrosis, with inferior osteophyte formation, with effacement of the torn supraspinatus tendon (coronal T2 series 6 image 13). There is a Type II morphology (curved), with a posterior downsloping orientation. Normal visualized coracohumeral and coracoacromial ligaments. Normal quadrilateral space. Normal axillary space. Normal deltoid muscle. Normal trapezius muscle. MRI/Upper Ext Joint Only(Routine) IMPRESSION: Full-thickness tears of the distal supraspinatus and infraspinatus tendons, with 3.4 cm medial tendon retraction. Mild atrophy and fatty infiltration of the supraspinatus and infraspinatus muscles. Severe subscapularis tendinosis. Small glenohumeral joint effusion with fluid communicating into the subacromial-subdeltoid bursa. Superior migration of the humeral head with complete loss of the acromiohumeral space. Long biceps tendinosis. Hypertrophic acromioclavicular arthrosis, with inferior osteophyte formation, with effacement of the torn supraspinatus tendon. Electronically Signed: Reid Montaño MD at 11:36 EST ,
== END | disposition home or self-care (01) ==
LOC: MRI 10:20
PROVIDERS: PCP Family Medicine; Referring Provider Family Medicine; Visit Provider Family Medicine
DX: M25.511 Pain in right shoulder (principal)
CPT/HCPCS: 73221

== ENCOUNTER 2023-03-31 05:21 | Day surgery (SDC) | payer BC, SELFPAY ==
--- NOTE | 2023-03-24 14:08 | EKG12_ITS ---
Test Reason : PRE-OP Blood Pressure : / mmHG Vent. Rate : 098 BPM Atrial Rate : 098 BPM P-R Int : 158 ms QRS Dur : 114 ms QT Int : 370 ms P-R-T Axes : 033 -15 015 degrees QTc Int : 472 ms Normal sinus rhythm Normal ECG Confirmed by WILLIAM ALLISON, MORENA ([id number]), features editor MICHAELA SMITH ([id number]) on 03/25/2023 5:58:24 AM Referred By: Primo Yi Confirmed By:MORENA THOMAS MD
[2023-03-24 15:34] LABS: Anion Gap 1 (5-15); BUN 17 mg/dL (7-18); BUN/Creat Ratio 17.9 RATIO (10-20); Calcium,Total 9.2 mg/dL (8.5-10.1); Chloride 108 mmol/L (98-107); Creatinine, Serum 0.95 mg/dL (0.70-1.30); EST Glomerular Filtration Rate 87 mL/min (>60); Est Glom Filt Rate - Afr Amer 105 mL/min (>60); Glucose 85 mg/dL (74-106); Potassium 4.7 mmol/L (3.5-5.1); Sodium Level 138 mmol/L (136-145); Thyroid Stim Hormone (TSH) 4.04 uIU/mL (0.358-3.74)
[2023-03-31] VITALS (10 sets, daily range): BP systolic 111–146; BP diastolic 76–102; PULSE 68–83; RESP 16–18; TEMP 36.3–36.9; O2SAT 92–96; BMI 44.9
[2023-03-31] MEDS: Lactated Ringers 1,000 ML 15 ML IV ×2 (06:22→10:03)
--- NOTE | 2023-03-31 07:01 | HP.PCM_ITS ---
HPI - General HPI Narrative SOFIA BURDEN, is a 57 M who presents for right shoulder arthroscopy, subacromial decompression, rotator cuff repair. No changes to h and p. rab and narcotic counselling. right shoulder marked. post op instructions given. no further questions, will proceed. Dr. blank seeing the patient, obese so no block. MR#: [id number] Acct: [id number] Name: SOFIA BURDEN Rep #: [id number] : 1965 Provider: Dr. Primo Yi MD Age/Sex: 57/M Location: [facility] [place] Status: Signed Intake Vital Signs 11/19/2107:58 02/12/2315:21 02/16/2314:24 Height 6 ft 4 in 6 ft 4 in 6 ft 4 in Weight: 362 lb 4 oz BMI 44.1 Intake Visit Reasons: RIGHT SHOULDER Accompanied by: Self Is patient in pain?: Yes Pain scale (1-10): 5 Allergies No Known Allergies Allergy (Verified 02/16/23 14:26) Medications levothyroxine 150 mcg tablet 150 mcg PO DAILY 06/20/20 [History Confirmed 02/16/23] atorvastatin 20 mg tablet 20 mg PO DAILY 07/13/20 [History Confirmed 02/16/23] aspirin 81 mg tablet,delayed release (Adult Low Dose Aspirin) 81 mg PO DAILY 11/18/20 [History Confirmed 02/16/23] multivitamin 1 tab PO DAILY 11/18/20 [History Confirmed 02/16/23] citalopram 40 mg tablet 40 mg PO DAILY 02/16/23 [History Confirmed 02/16/23] esomeprazole magnesium 40 mg capsule,delayed release (Nexium) 40 mg PO DAILY 02/16/23 [History Confirmed 02/16/23] testosterone topical 02/16/23 [History Confirmed 02/16/23] PFSH Medical History Dvt femoral (deep venous thrombosis) Encounter for screening for COVID-19 GERD (gastroesophageal reflux disease) Hemorrhoids History of pulmonary embolus (PE) Hyperlipidemia Hypothyroidism Right rotator cuff tear Syncope and collapse Surgical History History of cholecystectomy (2009) History of open reduction and internal fixation (ORIF) procedure (2011) Family History Other Diabetes Heart disease Social History Smoking Status: Former smoker HPI RIGHT SHOULDER Details: This documentation accurately reflects the service provided and the decisions made by me, Dr. Primo Yi MD 02/16/23 1352. Part of today?s visit was documented by [ ], acting as scribe. SOFIA BURDEN is a 57 year old M here today for R shoulder pain ... throwing a deer by the legs back in April, felt a big pop, right side, 'babyying it along' painful laterally, hard to lift without pain. Dr marmolejo did a cortisone injection and exercises. Injection was a couple months ago. RHD. 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 injection helped for less than a week. patient has very physically demanding job. feels weak. Ortho Exam General General: Yes no acute distress Neurologic: Yes alert and Yes oriented x3 Psychologic: Yes reasonable and appropriate Right Shoulder Skin/Wound: Yes CDI, No ecchymosis, No erythema and No swelling Testing: Positive Hawkin's, Neer's, AROM-External Rotation at side 0-60, empty can and belly press normal; Negative Speed's, TTP Biceps, TTP AC Joint, Drop Arm, cross arm or scapular winging SHOULDER: normal motor and sens to ax nerve, and MRU and AIN/PIN active FE 130, passively 165 strength FE 4+, ER 4+ IR to belt line. Supplemental Info [facility] [address] [place] [address] Shoulder min 2 Views MR#: [id number] Acct: [id number] Name: SOFIA BURDEN Rep #: [id number] : 1965 M 57 From: Waqar Balderas MD PCP: Dr. Chuckie Marmolejo MD Status: REG CLI Study: Shoulder min 2 Views Date of Exam: 10/20/22 Exam# [id number] Ordering Dr: Chuckie Marmolejo MD INDICATION: pain EXAMINATION/TECHNIQUE: X-RAY - RIGHT XR Shoulder Min 2 Views 4 VIEWS COMPARISON: Chest radiograph June 21, 2020 FINDINGS: SOFT TISSUES: No soft tissue swelling or gas. No radiopaque foreign body. BONES/JOINTS: No acute fracture. No Hill-Sachs or Bankart lesion... Normal glenohumeral and acromioclavicular alignment. No sclerotic or destructive changes observed. Mild glenohumeral and acromioclavicular osteophyte formation. RAD/Shoulder min 2 Views IMPRESSION: Mild glenohumeral and acromioclavicular osteoarthritis.. Electronically Signed: Waqar Balderas MD at 6:33 EDT Reading Location ID and State: [facility] / [place] Tel , Service support , [facility] Services [address] [place] [address] Upper Ext Joint Only(Routine) MR#: [id number] Acct: [id number] Name: SOFIA BURDEN Rep #: [id number] : 1965 57 From: Reid Montaño MD PCP: Dr. Chuckie Marmolejo MD Status: REG CLI Study: Upper Ext Joint Only(Routine) Date of Exam: 02/10/23 Exam# [id number] Ordering Dr: Chuckie Marmolejo MD STUDY: MRI RIGHT SHOULDER REASON FOR EXAM: Male, 57 years old. Right shoulder pain, rotator cuff disorder, limited range of motion. TECHNIQUE: Standardized fat and water weighted pulse sequences were obtained in all 3 orthogonal planes. COMPARISON: Right shoulder radiographs dated 10/20/2022. FINDINGS: There are full-thickness tears of the distal supraspinatus and infraspinatus tendons, with 3.4 cm medial tendon retraction. There is severe subscapularis tendinosis. Normal teres minor tendon. There is mild atrophy and fatty infiltration of the supraspinatus and infraspinatus muscles. Normal subscapularis muscle. Normal teres minor muscle. There is a small glenohumeral joint effusion with fluid communicating into the subacromial-subdeltoid bursa. There is superior migration of the humeral head with respect to the glenoid with complete loss of the acromiohumeral space. Normal biceps labral complex. There is long biceps tendinosis within the proximal bicipital groove. Normal labrum. Normal capsulo-ligamentous complex. Normal rotator interval. There is hypertrophic acromioclavicular arthrosis, with inferior osteophyte formation, with effacement of the torn supraspinatus tendon (coronal T2 series 6 image 13). There is a Type II morphology (curved), with a posterior downsloping orientation. Normal visualized coracohumeral and coracoacromial ligaments. Normal quadrilateral space. Normal axillary space. Normal deltoid muscle. Normal trapezius muscle. MRI/Upper Ext Joint Only(Routine) IMPRESSION: Full-thickness tears of the distal supraspinatus and infraspinatus tendons, with 3.4 cm medial tendon retraction. Mild atrophy and fatty infiltration of the supraspinatus and infraspinatus muscles. Severe subscapularis tendinosis. Small glenohumeral joint effusion with fluid communicating into the subacromial-subdeltoid bursa. Superior migration of the humeral head with complete loss of the acromiohumeral space. Long biceps tendinosis. Hypertrophic acromioclavicular arthrosis, with inferior osteophyte formation, with effacement of the torn supraspinatus tendon. Electronically Signed: Reid Montaño MD at 11:36 EST Reading Location ID and State: [address] [place] [address] , Service support , agree w rads assessment Coding Level of Care Code Off vis,new,level 3 Diagnoses Right rotator cuff tear M75.101 Assessment and Plan Assessment and Plan (1) Right rotator cuff tear: Status: Acute Plan: 57-year-old man with right shoulder pain and acute rotator cuff tear with retraction. The patient has tried exercises as well as a cortisone injection this only was temporarily relief and the patient has some weakness with medium size tear with some retraction and the patient is only in their mid 50s. At this point the next step would be to consider surgical management. This would be in the form of right shoulder arthroscopy, subacromial decompression, rotator cuff repair. Pros and cons risks and benefits of nonsurgical management versus surgery were discussed. Non surgical mgt would have the risk of further retraction weakness degeneration of the tendon and muscle atrophy with fatty infiltration. That being said surgery has its own set of risks. I did warn the patient this is hard to get back to heavy lifting like 50 pounds and more as well as possibly prolonged recovery 3 to 6 months before returning to full duties at work. Most common complication in this patient would most likely be stiffness but we talked about other risks as well. Can have recurrence or retear as well. Patient wishes to go ahead with the surgery signed the consent form today. We will proceed with booking the case. Pros and cons risks and benefits were discussed with the patient including but not limited to infection, pain, stiffness, bleeding, damage to surrounding structures, neurovascular injury, recurrence or retear, failure or wear of hardware or fixation, instability, fracture, deep vein thrombosis and pulmonary embolism, anesthetic risks, , patient dissatisfaction, need for further surgery and other risks. Patient understood and wished to proceed with surgery, and signed the informed consent documentation. [facility] Medical History (Updated 03/18/23 @ 15:01 by Joslyn Cummings) Cardiology follow-up encounter DVT (deep venous thrombosis) Dvt femoral (deep venous thrombosis) Encounter for screening for COVID-19 GERD (gastroesophageal reflux disease) Hemorrhoids High cholesterol History of echocardiogram History of pulmonary embolus (PE) History of stress test Hyperlipidemia Hypothyroidism Restless legs Right rotator cuff tear Syncope Syncope and collapse Thyroid disease Wears glasses Home Medications levothyroxine 150 mcg tablet 150 mcg PO DAILY 06/20/20 [History Last Taken 03/31/23] atorvastatin 20 mg tablet 20 mg PO DAILY 07/13/20 [History Last Taken Unknown] aspirin 81 mg tablet,delayed release (Adult Low Dose Aspirin) 81 mg PO DAILY 11/18/20 [History Last Taken 03/26/23] multivitamin 1 tab PO DAILY 11/18/20 [History Last Taken Unknown] citalopram 40 mg tablet 40 mg PO DAILY 02/16/23 [History Last Taken 03/31/23] esomeprazole magnesium 40 mg capsule,delayed release (Nexium) 40 mg PO DAILY 02/16/23 [History Last Taken 03/31/23] testosterone 1 pump topical DAILY 02/16/23 [History Last Taken Unknown] Allergy/AdvReac Type Severity Reaction Status Date / Time No Known Allergies Allergy Verified 03/18/23 14:50 Family History Other Diabetes Heart disease Surgical History (Updated 03/18/23 @ 15:01 by Joslyn Cummings) History of cholecystectomy (2009) History of open reduction and internal fixation (ORIF) procedure (2011) History of tonsillectomy History of wisdom tooth extraction Social History Smoking Status: Former smoker Vital Signs Vital Signs Vital Signs: 03/31/23 06:23 03/31/23 06:24 Temperature 98.5 F Temperature Source Temporal Pulse Rate 83 Respiratory Rate 16 Respiratory Pattern Normal Blood Pressure 142/96 H Blood Pressure Mean 111 Blood Pressure Source Monitor Blood Pressure Position Semi-Fowlers Blood Pressure Location Right Forearm Pulse Ox 96 Oxygen Delivery Method Room Air Weight Weight: 369 lb 0.861 oz Body Mass Index (BMI) 44.9 Results Lab / Micro Data 03/24/23 14:20
[2023-03-31] MEDS: Cefazolin 3 GM in 0.9% Normal Saline (100mL Bag) 100 ML IV (07:28)
[2023-03-31] MEDS: Bupivacaine 0.25% 30 ML Vial ×2 (08:25)
[2023-03-31] MEDS: Epinephrine (1 mg/ml) 1 MG/ML VIAL (08:26)
--- NOTE | 2023-03-31 09:44 | PCM.OPRPT ---
Problems Associated Problem List Diagnoses (1) Right rotator cuff tear: Report of Operation Date of Procedure: 03/31/23 Pre-Operative Diagnosis: Right shoulder rotator cuff tear and impingement syndrome Post-Operative Diagnosis: Same Surgery/Procedure Performed:: Right shoulder arthroscopy subacromial decompression rotator cuff repair Surgeon: Primo Yi Type of Anesthesia: General and Local Anesthesiologist: Valente Gentile Estimated Blood Loss (mL): 50 Description of Procedure: Patient brought to the operating room theater. Placed supine on the table. General anesthesia induced. 3 g IV Ancef administered prior to the start of the case. Patient transferred right side up lateral decubitus all bony prominences padded SCDs on the leg beanbag positioner. Upper extremity prepped and draped in the usual sterile fashion with chlorhexidine-based prep solution allowing over 3 minutes drying time prior to draping. 45 degrees of abduction with 10 pounds of inline traction set up was used. Preoperative timeout performed to confirm the site patient and the surgery. Began by inserting the arthroscope into the intra-articular portion of the shoulder. Did a diagnostic arthroscopy. Cartilage on the glenoid and humeral head appeared normal. Subscapularis thickening but no tears. Biceps tendinosis but again no tears. Slight longitudinal fraying no synovitis. No loose bodies. Axillary recess was normal. There is an obvious full-thickness and retracted tear of the supraspinatus and IS tendon. This was retracted to nearly the level of the glenoid. This was a full-thickness from anterior to posterior and medial to lateral tear with retraction. I did a subacromial decompression for flat margins using a bur instrument. I assessed the mobility of the tear. This is quite immobile. I did releases on the superior and inferior aspect of the supraspinatus (just superior to glenoid erring no more than 1cm medial) tendon as well as interval slides anteriorly as well as at the margin of the teres minor which appeared intact. This allowed me at least to get the tendon to the articular margin. I medialized by 3 mm. I used the power pick instrument to trephinate at the greater tuberosity for stimulating healing. Used 7x7mm cannulas for 3 accessory portals. I also cleared away any remaining soft tissue. Assess mobility of the tear. I put 2 Arthrex fiber link sutures to help with mobilizing the tear and for during the repair. I placed 3 anchors at the medial row. Anteriorly and far posteriorly was the arthrex knotless fiber tack anchors. I tried to put another knotless fiber tack anchor in the middle but this pulled out so I replaced that with a Arthrex bio composite swivel lock anchor. These all achieved good purchase. I mobilized the tear and passed the sutures inferior to superior through the tendon. I passed both limbs of the middle anchor. I then selected 1 suture from each anchor, after cutting at the splice, as well as one limb of the fiber link suture for a total of 4 limbs going to one anchor. I docked each of these to another Arthrex 4.75 mm bio composite swivel lock anchor for a total of 5 anchors ...3 at the medial row and 2 laterally. This achieved good repair under slight tension had to be medialized but good compression. I removed the stay sutures there is no dogears or role for additional sutures. Case was terminated arthroscopy pictures taken and saved throughout the case onto the system. Wounds thoroughly irrigated. Portals closed with 3-0 Monocryl suture. Skin cleaned with wet dry dressing 30 cc of quarter percent bupivacaine. Steri-Strips Adaptic 4 x 4 gauze ABD dressing with cloth tape and a sling for the upper extremity. Patient woken up from a general anesthetic transferred off the operating table and taken to postanesthetic care unit in stable condition. All sponge needle instrument counts were correct. cpt 70284 with modifier 22 - large tear with additional work to mobilize Complications none Admit VTE Documentation VTE Present on Admission: No VTE Mechan Device Prophylaxis: SCD's VTE Pharm Prophylaxis ordered?: No Reason prophylaxis not ordered:: Treatment Not Indicated Procedures Musculoskeletal [id number]: Other Procedure See Report
--- NOTE | 2023-03-31 09:56 | DCINST_ITS ---
Discharge Instructions Diet Discharge Diet: No restrictions Activity Ice area for (Minutes): 10 Lifting Restrictions: pendulums 4x/day and hand wrist elbow rom ok Dressing / Incision Call your doctor if your incision/area has: Continuous Slow Oozing, Sudden Increased Bleeding, Increased Pain/ Swelling, Increased Redness, Foul Smelling Discharge and Swelling at the incision site Change Dressing in: leave in place till F/U Follow Up Care Please Follow Up With: Primo Yi MD When: 2-3 days Test Results: Test results from this visit will be discussed in further detail at your follow- up appointment, if applicable. Discharge Plan Admission Attending Provider: Primo Yi Primary Care Provider: Chuckie Fitzgerald Discharge Orders/Prescriptions Prescriptions: New oxycodone-acetaminophen [Endocet] 5-325 mg tablet 1 tab PO Q4H MDD 6 PRN (Reason: pain) 5 Days Qty: 30 0RF No Action multivitamin Tablet 1 tab PO DAILY aspirin [Adult Low Dose Aspirin] 81 mg tablet,delayed release (DR/EC) 81 mg PO DAILY testosterone 20.25 mg/1.25 gram (1.62 %) gel in metered-dose pump 1 pump topical DAILY citalopram 40 mg tablet 40 mg PO DAILY esomeprazole magnesium [Nexium] 40 mg capsule,delayed release(DR/EC) 40 mg PO DAILY levothyroxine 150 MCG tablet 150 mcg PO DAILY atorvastatin 20 mg tablet 20 mg PO DAILY Other Ambulatory Orders: 12 Lead EKG (Routine) Timeframe: [id number] Location: None Selected Ordered By: Dr. Josef Ochoa Referrals / Follow Up: Chuckie Fitzgerald MD [Primary Care Provider] - Primo Yi MD [Med Staff - Active Staff] - Disposition Disposition (needs filled in before D/C Order can be placed): Home, Self Care
[2023-03-31] MEDS: Oxycodone/Apap 5/325 Tablet PO (11:40)
== END 2023-03-31 12:43 | disposition home or self-care (01) ==
LOC: SDC 05:21 → AC 05:22
PROVIDERS: Anesthesiology; PCP Family Medicine; Referring Provider Orthopaedic Surgery Sports Medicine; Visit Provider Orthopaedic Surgery Sports Medicine
PROC: (CPT 29805; principal; 2023-03-31 07:10)
DX: M75.101 Unspecified rotator cuff tear or rupture of right shoulder, not specified as traumatic (principal); M19.011 Primary osteoarthritis, right shoulder; Z87.891 Personal history of nicotine dependence; E78.5 Hyperlipidemia, unspecified; M75.81 Other shoulder lesions, right shoulder; M62.50 Muscle wasting and atrophy, not elsewhere classified, unspecified site; E03.9 Hypothyroidism, unspecified; K21.9 Gastro-esophageal reflux disease without esophagitis; Z86.718 Personal history of other venous thrombosis and embolism
CPT/HCPCS: 29827; 01630; 36415; 80048; 84443; 93005; C1713; J7120; J2405

== ENCOUNTER → 2023-06-27 | Outpatient (CLI) | payer BC, SELFPAY ==
[2023-06-27 08:02] LABS: Hematocrit 44.7 % (40-54); Hemoglobin 13.9 g/dL (13.0-16.5); Mean Corp Hgb Conc 31.1 g/dL (32-36); Mean Corpuscular Hgb 29.1 pg (27.0-32.0); Mean Corpuscular Volume 93.5 fL (80-94); Mean Platelet Vol. 9.3 fl (6.2-12.0); Platelet Count 256 K/mm3 (150-450); RBC Distribution Width SD 44.5 fl (35.1-43.9); Red Blood Count 4.78 M/mm3 (4.6-6.2); White Blood Count 5.3 K/mm3 (4.4-11.0)
[2023-06-27 08:49] LABS: ALB/GLOB Ratio 1.2 RATIO (0.9-2.4); AST(SGOT) 19 U/L (15-37); Alanine Aminotransfer ALT/SGPT 36 U/L (16-61); Albumin, Serum 3.8 g/dL (3.2-5.0); Alkaline Phosphatase 91 U/L (45-117); Anion Gap 3 (5-15); BUN 21 mg/dL (7-18); BUN/Creat Ratio 28.8 RATIO (10-20); Calcium,Total 9.3 mg/dL (8.5-10.1); Chloride 106 mmol/L (98-107); Cholesterol 158 mg/dL (200); Creatinine, Serum 0.73 mg/dL (0.70-1.30); EST Glomerular Filtration Rate 118 mL/min (>60); Est Glom Filt Rate - Afr Amer 142 mL/min (>60); Globulin 3.3 g/dL (2.2-4.2); Glucose 106 mg/dL (74-106); High Density Lipoprotein 51 mg/dL; PSA,Total- Diagnostic 1.52 ng/mL (0.0-4.0); Potassium 4.6 mmol/L (3.5-5.1); Protein, Total 7.1 g/dL (6.4-8.2); Sodium Level 137 mmol/L (136-145); T4 Free Direct 0.85 ng/dL (0.76-1.46); Thyroid Stim Hormone (TSH) 3.24 uIU/mL (0.358-3.74); Triglycerides 84 mg/dL; Very Low Density Lipoprotein 17 mg/dL (5-40)
== END | disposition home or self-care (01) ==
LOC: LAB 07:03
PROVIDERS: PCP Family Medicine; Referring Provider Family Medicine; Visit Provider Family Medicine
DX: E03.9 Hypothyroidism, unspecified (principal); I10 Essential (primary) hypertension; E29.1 Testicular hypofunction
CPT/HCPCS: 36415; 80053; 80061; 84153; 84403; 84439; 84443; 85027

== ENCOUNTER 2023-08-20 16:00 | Outpatient (RCR) | payer BC, SELFPAY ==
--- NOTE | 2023-04-14 12:11 | HP.PTEVAL ---
Patient's Visit Information Visit Information Visit Information: SOFIA BURDEN is a 57 year old M referred to Physical Therapy by Dr. Primo Yi MD with a diagnosis of R RCR large 03/31. Date of Evaluation: 04/14/23 Physical Therapist: Valente Ceja, YUDITHT, OCS, CSCS Visit Plan Frequency: 1-2x /Week Duration: 4 Months Plan: 1-2x/week for 4-5 motnhs as needed for PROM until early May, AAROM to AROM in May progression, strength RC and scap in June and then return to activity exercises. May teach family member PROM if pt desires and brings that person with her. Please progress HEP as tolerated taking an extra week or two from typical RCR as this was large. Pt education ice aas needed scar massage. Subjective Subjective: Large R RCT. It happened last april deer hunting getting deer in back of truck. Just putting up with it for the last year, could not lift overhead or out in front. Was 3/10 at rest. Was keeping up at night. Had RCR 03/31/23, 2 weeks ago. Is going well. Haven't had pain meds in a week, some tylenol or ibuprofen now and then. Not needing ice lately. 1/10 pain at rest. Is doing pendulum from doctor. In sling 50% of time, takes off in chair. Spends a lot of time in chair. Cleans house using L arm as he has a hard time sitting around. Sleep is OK and went back to bed last night. 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 Hobbies: hunting, gardening...not lately. Firewood, not lately. Basic ADLS, dresses self, showers self, bath room I. Is R handed. Pain R shouldeer: Pain Intensity (Out of 10): 1 Pain Intensity Range: 0 and 1 Objective Objective: Walks into PT I, dons and doffs sling easily and I. Incisions are healed well and dry. cervical and scap aROM WFL B. elbow, wrist and hand AROM WFL B, no increased pain. PROM R shoulder 120 flexion, 100 abduction, 45 er, and 60 IR all without huge end feels and limited out of caution today due to slight wincing. Sensation UE WNL to gross lgiht touch. L shoulder AROM WFL Balance/Special Test Scores Quick DASH Score: 56.8175 Goals Goal 1:: ST: sleep through night without interruption Goal Time Frame: 2-4 Weeks Goal 2:: Full PROM without pain Goal Time Frame: 2-4 Weeks Goal 3:: LT: AROM 160 flexion and abduction 75 er, and 80 IR without pain Goal Time Frame: 6-8 Weeks Goal 4:: Pain 0-1/10 at all times Goal Time Frame: 6-8 Weeks Goal 5:: Plan for patient to return to work without limitations Goal Time Frame: 8-12 Weeks Rehabilitation Potential Physical Therapy Diagnosis: pain, stiffness, weakness s/p RCR Rehabilitation Potential: Good Anticipated Interventions Patient/Client Instruction: Educate patient on: Condition and Plan of Care For the Purpose of:: To decrease pain, To decrease swelling/inflammation, To increase ROM, To improve nutrient delivery to tissue, To increase tolerance to activity/condition/position, To improve ability of physical actions for home/community/work/leisure and To improve gait and locomotor functions Therapeutic Exercise to Include: Strength training, Postural training, Flexibilty training, Passive ROM, Active ROM and Scapular Strength/Stabilization For the Purpose of:: To decrease pain, To decrease swelling/inflammation, To increase ROM, To improve nutrient delivery to tissue, To improve muscle performance and motor function, To increase tolerance to activity/condition/position, To improve ability of physical actions for home/community/work/leisure and To improve gait and locomotor functions Manual Therapy Techniques to Include: Mobilization and Passive ROM For the Purpose of:: To decrease pain, To increase ROM, To improve nutrient delivery to tissue, To improve muscle performance and motor function and To increase tolerance to activity/condition/position Cryotherapy (ice pack, ice massage): Yes For the Purpose of:: To decrease pain, To decrease swelling/inflammation and To improve nutrient delivery to tissue Text: Thank you for the opportunity to evaluate your patient. For Medicare and Medicare HMO plans, please review the plan of care and approve it. It will need to be FAXED BACK to us at [phone] for Medicare purposes. For Medicare only, by signing this I certify the plan of care. Please let me know if there are questions or concerns regarding this plan of care. Physician Signature: Date:
--- NOTE | 2023-05-12 10:48 | HP.PTREVAL ---
Re-Evaluation Intro: Dr. Primo Yi MD, It has been my pleasure to treat SOFIA BURDEN over the last 8 visits for R RCR large 03/31. Please see the progress note below for an update on the physical therapy plan of care! Subjective Subjective: 1/10 pain much of time but not all the time. Worse in am stiff. Out of the sling. HEP going well. Doing pendulums at home. Will see doctor this Thursday. Objective Objective/Function: AROM: ER 43, 105 flexion. 75 abduction. PROM 155 flexion 130 abduction, 70 er, 70 IR at 70 abd. Doing very well with PROM and pain, happy and progressing nicely with AAROM. On target. Plan Plan Plan: 2x/week for AAROM to aROM progression and strength once aROM is good. ice as needed and porgression of funciton. Pt to doctor on Thursday. Balance/Gait/Functional tests Balance/Special Test Scores Quick DASH Score: 56.8175 Goals Goals Goal 1:: ST: sleep through night without interruption Goal Time Frame: 2-4 Weeks Goal Progress: Goal Met Goal 2:: Full PROM without pain Goal Time Frame: 2-4 Weeks Goal Progress: Progressing Goal 3:: LT: AROM 160 flexion and abduction 75 er, and 80 IR without pain Goal Time Frame: 6-8 Weeks Goal 4:: Pain 0-1/10 at all times Goal Time Frame: 6-8 Weeks Goal 5:: Plan for patient to return to work without limitations Goal Time Frame: 8-12 Weeks Anticipated Interventions Anticipated Interventions Patient/Client Instruction: Educate patient on: Condition and Plan of Care For the Purpose of:: To decrease pain, To decrease swelling/inflammation, To increase ROM, To improve nutrient delivery to tissue, To increase tolerance to activity/condition/position, To improve ability of physical actions for home/community/work/leisure and To improve gait and locomotor functions Therapeutic Exercise to Include: Strength training, Postural training, Flexibilty training, Passive ROM, Active ROM and Scapular Strength/Stabilization For the Purpose of:: To decrease pain, To decrease swelling/inflammation, To increase ROM, To improve nutrient delivery to tissue, To improve muscle performance and motor function, To increase tolerance to activity/condition/position, To improve ability of physical actions for home/community/work/leisure and To improve gait and locomotor functions Manual Therapy Techniques to Include: Mobilization and Passive ROM For the Purpose of:: To decrease pain, To increase ROM, To improve nutrient delivery to tissue, To improve muscle performance and motor function and To increase tolerance to activity/condition/position Cryotherapy (ice pack, ice massage): Yes For the Purpose of:: To decrease pain, To decrease swelling/inflammation and To improve nutrient delivery to tissue Re-Evaluation Ending Re-evaluation ending: Please do not hesitate to contact me at [phone] by phone or if you have questions or concerns regarding this new plan of care! Sincerely, Valente Ceja, DPT, OCS, CSCS
--- NOTE | 2023-06-11 10:28 | HP.PTREVAL ---
Re-Evaluation Intro: Dr. Primo Yi MD, It has been my pleasure to treat SOFIA BURDEN over the last 16 visits for R RCR large 03/31. Please see the progress note below for an update on the physical therapy plan of care! Subjective Subjective: Doing great. pain not an issue more stiffness with moving. Sleeping OK. HEp going OK, To doctor in one week. Light duty release expected 06/22. Will have a llifting restriction. Basic ADLs are normal. Enjoys gardening and hunting and has been putting [employer] and [employer]. Shot gentle basketball last week for first time in a while. Objective Objective/Function: 150 flexion AROM, 150 abd, 51 er, L4 IR. 3+ er adn 4- ir strength. flexiona nd abduction 3+, some pain. Doing very well, needs to be stronger and work on slightly more flexion and er ROM. Plan Plan Plan: weekly x 4 to progress strength and ensure ROM improvement and RTW. Next session OTB and flexion, abd, prone. Balance/Gait/Functional tests Balance/Special Test Scores DASH Disability /Symptom Score: 15.8325 Quick DASH Score: 56.8175 Goals Goals Goal 1:: ST: sleep through night without interruption Goal Time Frame: 2-4 Weeks Goal Progress: Goal Met Goal 2:: Full PROM without pain Goal Time Frame: 2-4 Weeks Goal Progress: Progressing Goal 3:: LT: AROM 160 flexion and abduction 75 er, and 80 IR without pain Goal Time Frame: 6-8 Weeks Goal 4:: Pain 0-1/10 at all times Goal Time Frame: 6-8 Weeks Goal 5:: Plan for patient to return to work without limitations Goal Time Frame: 8-12 Weeks Anticipated Interventions Anticipated Interventions Patient/Client Instruction: Educate patient on: Condition and Plan of Care For the Purpose of:: To decrease pain, To decrease swelling/inflammation, To increase ROM, To improve nutrient delivery to tissue, To increase tolerance to activity/condition/position, To improve ability of physical actions for home/community/work/leisure and To improve gait and locomotor functions Therapeutic Exercise to Include: Strength training, Postural training, Flexibilty training, Passive ROM, Active ROM and Scapular Strength/Stabilization For the Purpose of:: To decrease pain, To decrease swelling/inflammation, To increase ROM, To improve nutrient delivery to tissue, To improve muscle performance and motor function, To increase tolerance to activity/condition/position, To improve ability of physical actions for home/community/work/leisure and To improve gait and locomotor functions Manual Therapy Techniques to Include: Mobilization and Passive ROM For the Purpose of:: To decrease pain, To increase ROM, To improve nutrient delivery to tissue, To improve muscle performance and motor function and To increase tolerance to activity/condition/position Cryotherapy (ice pack, ice massage): Yes For the Purpose of:: To decrease pain, To decrease swelling/inflammation and To improve nutrient delivery to tissue Re-Evaluation Ending Re-evaluation ending: Please do not hesitate to contact me at [phone] by phone or if you have questions or concerns regarding this new plan of care! Sincerely, Valente Ceja, DPT, OCS, CSCS
--- NOTE | 2023-07-09 16:23 | HP.PTREVAL ---
Re-Evaluation Intro: Dr. Primo Yi MD, It has been my pleasure to treat SOFIA BURDEN over the last 20 visits for R RCR large 03/31. Please see the progress note below for an update on the physical therapy plan of care! Subjective Subjective: Ready to be done with PT. Light duty work going well. Will tell doctor when full duty. Sleeping OK. Activities at home pretty normal. Wants to be stronger before release to full duty. Objective Objective/Function: 135 AROM elevation to start then 150 after stretching soheila. ER is 48 degrees R and 58 L, IR is without pain and funcitonal to L4 15# er R and 40 on L, other strength tests similar arm to arm with some mild relative weakness R elevationdoing exercising at home and f/u in 6-8 weeks. Good prognosis. Plan Plan Plan: Patient to [facility] and f/u 6 weeks to check er ROM and consider release full duty, call prior if problems. Balance/Gait/Functional tests Balance/Special Test Scores DASH Disability /Symptom Score: 15.8325 Quick DASH Score: 6.8175 Goals Goals Goal 1:: ST: sleep through night without interruption Goal Time Frame: 2-4 Weeks Goal Progress: Goal Met Goal 2:: Full PROM without pain Goal Time Frame: 2-4 Weeks Goal Progress: Goal Met, funcitonally Goal 3:: LT: AROM 160 flexion and abduction 75 er, and 80 IR without pain Goal Time Frame: 6-8 Weeks Goal Progress: 150 and 48 er Goal 4:: Pain 0-1/10 at all times Goal Time Frame: 6-8 Weeks Goal Progress: Goal Met Goal 5:: Plan for patient to return to work without limitations Goal Time Frame: 8-12 Weeks Goal Progress: Goal Met Goal 6:: 25# er r strength and pt feel ready for full duty 100% Goal Time Frame: 8-12 Weeks Goal Progress: NEW GOAL Anticipated Interventions Anticipated Interventions Patient/Client Instruction: Educate patient on: Condition and Plan of Care For the Purpose of:: To decrease pain, To decrease swelling/inflammation, To increase ROM, To improve nutrient delivery to tissue, To increase tolerance to activity/condition/position, To improve ability of physical actions for home/community/work/leisure and To improve gait and locomotor functions Therapeutic Exercise to Include: Strength training, Postural training, Flexibilty training, Passive ROM, Active ROM and Scapular Strength/Stabilization For the Purpose of:: To decrease pain, To decrease swelling/inflammation, To increase ROM, To improve nutrient delivery to tissue, To improve muscle performance and motor function, To increase tolerance to activity/condition/position, To improve ability of physical actions for home/community/work/leisure and To improve gait and locomotor functions Manual Therapy Techniques to Include: Mobilization and Passive ROM For the Purpose of:: To decrease pain, To increase ROM, To improve nutrient delivery to tissue, To improve muscle performance and motor function and To increase tolerance to activity/condition/position Cryotherapy (ice pack, ice massage): Yes For the Purpose of:: To decrease pain, To decrease swelling/inflammation and To improve nutrient delivery to tissue Re-Evaluation Ending Re-evaluation ending: Please do not hesitate to contact me at [phone] by phone or if you have questions or concerns regarding this new plan of care! Sincerely, Valente Ceja, DPT, OCS, CSCS
--- NOTE | 2023-08-20 16:24 | HP.PTDCSUM ---
Discharge Summary D/C summary: It has been my pleasure to treat SOFIA BURDEN referred by Dr. Primo Yi MD, with the diagnosis of R RCR large 03/31 for a total of 21 visit(s). Discharge Date: 08/20/23 Please see the following information for a summary of their discharge status. Subjective Subjective: Pain is not an issue. Lifting is still initermittently painful 04/15. Has lifted weight very little but lifting 50+# close to his body. Sleeping OK. Work is going well. Avoiding very little, no concerns about being released and wants to go full go at work. shot basketball without a problem. GTB for diagonals. Pain R shouldeer: Pain Intensity (Out of 10): 0 Overall Improvement % Improvement: 80 Objective Objective/Function: 140 flexion AROM and 145 PROM 48 er and L4 IR. No pain weakness noticeable in er R 4 vs 5/5 in other tests. Very aware of position of shoulder and minimizing stresses to shoulder. Ready for release to work using self control to limit stress to R UE. Goals Goal 1:: ST: sleep through night without interruption Goal Progress: Goal Met Goal 2:: Full PROM without pain Goal Progress: Goal Met, funcitonally Goal 3:: LT: AROM 160 flexion and abduction 75 er, and 80 IR without pain Goal Progress: 150 and 48 er Goal 4:: Pain 0-1/10 at all times Goal Progress: Goal Met Goal 5:: Plan for patient to return to work without limitations Goal Progress: Goal Met Goal 6:: 25# er r strength and pt feel ready for full duty 100% Goal Progress: Progressing 24# and ready Plan Plan: d/c PT to HEp and is to continue er and strengthening on own 5-6x/week D/C Information Discharge Comments: Pt will seek visit with doctor for release which is appropriate. d/c sentence: If there are questions or concerns regarding this patient's physical therapy, please feel free to call me at [phone]. Thank you for the referral of this patient. Sincerely, Valente Ceja, DPT, OCS, CSCS Balance/Gait/Functional tests Balance/Special Test Scores DASH Disability /Symptom Score: 15.8325 Quick DASH Score: 2.2725 Improvement % Improvement: 80
== END 2023-08-20 17:52 | disposition home or self-care (01) ==
LOC: PT 16:00
PROVIDERS: PCP Family Medicine; Visit Provider Orthopaedic Surgery Sports Medicine
DX: M75.101 Unspecified rotator cuff tear or rupture of right shoulder, not specified as traumatic (principal)
CPT/HCPCS: 97110; 97140; 97161; 97530

== ENCOUNTER 2023-09-23 15:28 | Outpatient (RCR) | payer BC, SELFPAY | END 2023-10-04 23:59 | LOC: NS 15:28 | PROVIDERS: PCP Family Medicine; Referring Provider Family Medicine; Visit Provider Family Medicine | DX: Z71.3 Dietary counseling and surveillance (principal); E66.9 Obesity, unspecified; Z68.42 Body mass index [BMI] 45.0-49.9, adult | CPT/HCPCS: 97802 ==

== ENCOUNTER 2023-10-19 15:21 | Outpatient (RCR) | payer BC, SELFPAY | END 2023-11-04 23:59 | LOC: NS 15:21 | PROVIDERS: PCP Family Medicine; Referring Provider Family Medicine; Visit Provider Family Medicine | DX: Z71.3 Dietary counseling and surveillance (principal); E66.9 Obesity, unspecified; Z68.42 Body mass index [BMI] 45.0-49.9, adult | CPT/HCPCS: 97803 ==

== ENCOUNTER 2023-11-18 15:29 | Outpatient (RCR) | payer BC, SELFPAY | END 2023-12-05 23:59 | LOC: NS 15:29 | PROVIDERS: PCP Family Medicine; Referring Provider Family Medicine; Visit Provider Family Medicine | DX: Z71.3 Dietary counseling and surveillance (principal); E66.9 Obesity, unspecified; Z68.42 Body mass index [BMI] 45.0-49.9, adult | CPT/HCPCS: 97803 ==

== ENCOUNTER 2023-12-22 15:17 | Outpatient (RCR) | payer BC, SELFPAY | END 2024-01-04 23:59 | LOC: NS 15:17 | PROVIDERS: PCP Family Medicine; Referring Provider Family Medicine; Visit Provider Family Medicine | DX: Z71.3 Dietary counseling and surveillance (principal); E66.9 Obesity, unspecified; Z68.42 Body mass index [BMI] 45.0-49.9, adult | CPT/HCPCS: 97803 ==

== ENCOUNTER 2024-02-10 15:35 | Outpatient (RCR) | payer BC, SELFPAY | END 2024-03-05 23:59 | LOC: NS 15:35 | PROVIDERS: PCP Family Medicine; Referring Provider Family Medicine; Visit Provider Family Medicine | DX: Z71.3 Dietary counseling and surveillance (principal); E66.9 Obesity, unspecified; Z68.42 Body mass index [BMI] 45.0-49.9, adult | CPT/HCPCS: 97803 ==

== ENCOUNTER → 2024-07-17 | Outpatient (CLI) | payer BC, SELFPAY ==
[2024-07-17 09:28] LABS: Hematocrit 45.1 % (40-54); Hemoglobin 14.9 g/dL (13.0-16.5); Mean Corpuscular Hgb 30.9 pg (27.0-32.0); Mean Corpuscular Volume 93.6 fL (80-94); Mean Platelet Vol. 9.3 fl (6.2-12.0); Platelet Count 217 K/mm3 (150-450); RBC Distribution Width CV 12.8 % (11.6-14.6); Red Blood Count 4.82 M/mm3 (4.6-6.2); White Blood Count 5.9 K/mm3 (4.4-11.0)
[2024-07-17 09:45] LABS: Hemoglobin A1c 5.6 % (<=5.6)
[2024-07-17 10:01] LABS: ALB/GLOB Ratio 1.6 RATIO (0.9-2.4); AST(SGOT) 24 U/L (<=37); Alanine Aminotransfer ALT/SGPT 27 U/L (<=46); Albumin, Serum 4.2 g/dL (3.5-5.0); Alkaline Phosphatase 97 U/L (40-129); Anion Gap 10 (5-15); BUN 16 mg/dL (4-19); BUN/Creat Ratio 22.1 RATIO (10-20); Calcium,Total 9.2 mg/dL (7.6-11.0); Carbon Dioxide 20.9 mmol/L (21.0-32.0); Chloride 106 mmol/L (98-108); Creatinine, Serum 0.74 mg/dL (0.70-1.20); EST Glomerular Filtration Rate 105 (>60); Globulin 2.6 g/dL (2.2-4.2); Glucose 106 mg/dL (70-99); Potassium 4.7 mmol/L (3.3-5.1); Protein, Total 6.8 g/dL (5.9-8.4); Sodium Level 137 mmol/L (133-145); Total Bilirubin 0.41 mg/dL (0.00-1.30); Vitamin D,25 Hydroxy 26.2 ng/mL (30-100)
[2024-07-17 13:23] LABS: Cholesterol 151 mg/dL (<=200); High Density Lipoprotein 57 mg/dL; Low Density Lipoprotein Calc. 81 mg/dL; Triglycerides 65 mg/dL; Very Low Density Lipoprotein 13 mg/dL (5-40); cholesterol:hdl ratio screen 2.66
== END | disposition home or self-care (01) ==
LOC: LAB 08:55
PROVIDERS: PCP Family Medicine; Visit Provider Family Medicine
DX: E03.9 Hypothyroidism, unspecified (principal); I10 Essential (primary) hypertension; K21.9 Gastro-esophageal reflux disease without esophagitis; R73.01 Impaired fasting glucose
CPT/HCPCS: 80053; 80061; 82306; 83036; 84443; 85027